=== PATIENT | female | born 1945 | race Hispanic/Latino ===

== ENCOUNTER 2018-07-01 20:25 | Emergency (ER) | payer MEDICARE, OTHER ==
[~2018-07-01] VITALS: Ht 160 cm; Wt 78.0 kg
[~2018-07-01 20:25] MED LIST: CITALOPRAM HBR20 MG PO; GLIMEPIRIDE4 MG PO; GLUMETZA500 MG PO; LEVAQUIN500 MG PO; LISINOPRIL5 MG PO; LOSARTAN POTASS25 MG PO; METOPROLOL SUCC25 MG PO; OMEPRAZOLE40 MG PO; ONGLYZA5 MG PO; SIMVASTATIN80 MG PO; ULTRAM 50MG50 MG PO
--- NOTE | 2018-07-01 22:23 | Diagnostic Imaging Report ---
EXAMINATION: Head CT HISTORY: Weakness, fever and chills for the last 4 days, on treatment for UTI. COMPARISON: None. TECHNIQUE: Multidetector axial images were obtained without contrast from the foramen magnum to the vertex . The images were reconstructed using brain and bone algorithms. Thin section brain images were reformatted into coronal and sagittal planes. Intravenous contrast: None. Image quality: Motion/streaking artifact limits the evaluation of the skull base and posterior cranial fossa. Dose modulation, iterative reconstruction, and/or weight based adjustment of the mA/kV was utilized to reduce the radiation dose to as low as reasonably achievable. FINDINGS: Parenchyma: 1. No abnormal densities. 2. No mass or hemorrhage. No CT evidence of acute territorial vascular insult. Extra-axial spaces:No abnormal density. No extra-axial fluid collections Brain volume: Normal for age. Ventricles: No hydrocephalus or displacement. Arteries: No density suggestive of thrombus. Dural sinuses: No abnormal density. Extra-axial spaces: No abnormal density. Foramen magnum: No mass, Chiari malformation, or basilar invagination. Sella: No obvious mass. Paranasal/mastoid sinuses: Imaged portions unremarkable. Skull/Scalp: No lytic or blastic lesions. No fractures. IMPRESSION: Normal head CT. Signed by: Dr. Porsha Mosley M.D. on 07/01/2018 10:20 PM
== END 2018-07-01 22:35 | disposition home or self-care (01) ==
LOC: FSED 20:25
DX: S01.01XA Laceration without foreign body of scalp, initial encounter (principal); S00.03XA Contusion of scalp, initial encounter; S50.811A Abrasion of right forearm, initial encounter; W01.0XXA Fall on same level from slipping, tripping and stumbling without subsequent striking against object, initial encounter; Y93.01 Activity, walking, marching and hiking; Y92.008 Other place in unspecified non-institutional (private) residence as the place of occurrence of the external cause; I10 Essential (primary) hypertension; E11.9 Type 2 diabetes mellitus without complications; E78.5 Hyperlipidemia, unspecified
CPT/HCPCS: 70450; 99283

== ENCOUNTER 2019-12-03 14:01 | Emergency (ER) | payer MEDICARE, OTHER ==
[~2019-12-03] VITALS: Ht 160 cm; Wt 76.2 kg
[2019-12-03] MEDS ORDERED: HYDROCODONE/APAP 5MG-325MG TAB PO ONE (14:30)
[2019-12-03] MEDS ORDERED: HYDROCODONE/APAP 5MG-325MG TAB ONE (15:00)
--- NOTE | 2019-12-03 15:24 | Diagnostic Imaging Report ---
EXAM: CT Chest WITHOUT intravenous contrast 12/03/2019 12:00 AM INDICATION: Chest wall pain COMPARISON: Chest radiograph 06/21/2018 TECHNIQUE: Chest was scanned utilizing a multidetector helical scanner from the lung apex through the level of the adrenal glands without administration of IV contrast. Coronal and sagittal reformations were obtained. Routine protocol was performed. IV CONTRAST: None RADIATION DOSE: Total DLP: 326.9 mGy*cm. Dose modulation, iterative reconstruction, and/or weight based adjustment of the mA/kV was utilized to reduce the radiation dose to as low as reasonably achievable. COMPLICATIONS: None FINDINGS: LINES/ TUBES: None. LUNGS AND AIRWAYS: The central airways are patent. No focal consolidation or pulmonary edema. 5 mm right lower lobe pulmonary nodule (series 3 image 57). Mild lingular subsegmental atelectasis. PLEURA: The pleural spaces are clear. HEART AND MEDIASTINUM: The thyroid gland is normal. No mediastinal, hilar or axillary lymphadenopathy. The heart is normal in size.. There is no pericardial effusion. Scattered coronary artery atherosclerotic calcifications. UPPER ABDOMEN: No acute findings. BONES: No acute fracture or dislocation. No suspicious lytic or blastic lesions. SOFT TISSUES: Unremarkable. IMPRESSION: No acute traumatic injury to the right thorax. 5 mm right lower lobe pulmonary nodule. If the patient is high risk, follow-up chest CT at 12 months is optional. If the patient is low risk, no further follow-up imaging is warranted. Signed by: Leopoldo Barker MD on 12/03/2019 3:21 PM
[2019-12-03 15:45] VITALS: BP 150/80
== END 2019-12-03 15:51 | disposition home or self-care (01) ==
LOC: FSED 14:01
DX: S20.219A Contusion of unspecified front wall of thorax, initial encounter (principal); W18.30XA Fall on same level, unspecified, initial encounter; Y92.008 Other place in unspecified non-institutional (private) residence as the place of occurrence of the external cause; I10 Essential (primary) hypertension; E11.9 Type 2 diabetes mellitus without complications; I51.9 Heart disease, unspecified
CPT/HCPCS: 71250; 99283

== ENCOUNTER 2020-09-03 05:22 | Observation (INO) | payer MEDICARE ==
[2020-08-31 14:13] LABS: BASOPHILS # (AUTO) 0.1 (0.0-0.1); BASOPHILS % 0.8 % (0.0-1.0); EOSINOPHILS # (AUTO) 0.2 (0.0-0.4); EOSINOPHILS % 2.6 % (0.0-6.0); HEMATOCRIT 33.4 % (34.2-44.1); HEMOGLOBIN 10.6 g/dL (12.0-16.0); LYMPHOCYTES # (AUTO) 1.5 (1.0-3.2); LYMPHOCYTES % 18.8 % (18.0-39.1); MEAN CORPUSCULAR HEMOGLOBIN 29.9 pg (28-32); MEAN CORPUSCULAR HGB CONC 31.7 g/dL (31-35); MEAN CORPUSCULAR VOLUME 94.4 fL (81-99); MONOCYTES # (AUTO) 0.6 (0.2-0.8); MONOCYTES % 8.2 % (4.4-11.3); NEUTROPHILS # (AUTO) 5.4 (2.1-6.9); NEUTROPHILS % 69.2 % (38.7-80.0); PLATELET COUNT 468 x10e3/uL (140-360); RED BLOOD COUNT 3.54 x10e6/uL (3.6-5.1); RED CELL DISTRIBUTION WIDTH 13.6 % (11.7-14.4)
[2020-08-31 14:27] LABS: INR 0.99; PROTHROMBIN TIME 13.6 seconds (11.9-14.5)
[2020-08-31 14:32] LABS: ANION GAP 12.9 mmol/L (8-16); CALCIUM 9.2 mg/dL (8.4-10.2); POTASSIUM 4.9 mmol/L (3.5-5.1)
[~2020-09-03] VITALS: Ht 160 cm; Wt 70.8 kg
[~2020-09-03 05:22] MED LIST changes: +FERROUS SULFAT325 M1 PO; +METFORMIN HCL500 M2 PO; +VITAMIN B12 SL; +VITAMIN C1000 MG PO
[2020-09-03] MEDS ORDERED: TYLENOL # 31 EA PO (06:00)
[2020-09-03] MEDS ORDERED: CEFAZOLIN SOD 1 GM/NS 50ML 100 ML IV ONE (06:01)
[2020-09-03] MEDS ORDERED: THROMBIN FOR SOLN 5,000 UNIT VIAL ONE (07:05)
[2020-09-03] MEDS ORDERED: VANCOMYCIN HCL 1 GM VIAL ONE (07:05)
[2020-09-03] MEDS ORDERED: LIDOCAINE 1% W/EPINEPHRINE 20 ML VIAL ONE (07:05)
[2020-09-03] MEDS ORDERED: ACETAMINOPHEN 1000 MG/100 ML 100 ML IV ONE (07:15)
[2020-09-03] MEDS ORDERED: LIDOCAINE HCL (LTA) 4 ML SOLN ONE (07:15)
[2020-09-03] MEDS ORDERED: IBUPROFEN 800MG/ 200ML 200 ML IV ONE (07:16)
[2020-09-03] MEDS ORDERED: HYDROMORPHONE 2MG/ML 2 MG/ML ML IV PRN (08:45)
[2020-09-03] MEDS ORDERED: CARISOPRODOL 350 MG TAB PO PRN (08:45)
[2020-09-03] MEDS ORDERED: ACETAMINOPHEN 325 MG TAB PO PRN (08:45)
[2020-09-03] MEDS ORDERED: PROMETHAZINE HCL (IM) 25 MG/ML VIAL IM PRN (08:45)
[2020-09-03] MEDS ORDERED: MORPHINE SULFATE 5 MG/ML VIAL IM PRN (08:45)
[2020-09-03] MEDS ORDERED: CEPACOL SORE THROAT LOZENGES PO PRN (08:45)
[2020-09-03] MEDS ORDERED: ONDANSETRON HCL INJ 2MG/ML 2ML 2 MG/ML VIAL IV PRN (08:45)
[2020-09-03] MEDS: VITAMIN B12 SL SCH (09:00)
[2020-09-03] MEDS ORDERED: FENTANYL CITRATE/PF 100MCG/2 ML INJ ONE ×2 (09:00→13:03)
[2020-09-03] MEDS ORDERED: HYDROMORPHONE 1MG/1ML INJ ONE (09:14)
[2020-09-03 10:30] VITALS: BP 134/95
[2020-09-03 11:58] VITALS: BP 128/56
[2020-09-03] MEDS ORDERED: SEVOFLURANE INHAL SOLN 250 ML PEN BTL ONE (12:17)
[2020-09-03] MEDS ORDERED: ROCURONIUM BROMIDE 10 MG/ML 5ML VIAL IV ONE (12:17)
[2020-09-03] MEDS ORDERED: DEXAMETHASONE SOD PHOS INJ 4 MG/ML VIAL ONE (12:17)
[2020-09-03] MEDS ORDERED: LIDOCAINE HCL 2% JELLY 5 ML TUBE ONE (12:17)
[2020-09-03] MEDS ORDERED: LIDOCAINE HCL 2% LOCAL INJ 5 ML SDV VIAL INJ ONE (12:17)
[2020-09-03] MEDS ORDERED: EPHEDRINE SULFATE INJ 50 MG/ML VIAL ONE (12:17)
[2020-09-03] MEDS ORDERED: NEOSTIGMINE 1 MG/ML 10ML VIAL ONE (12:17)
[2020-09-03] MEDS ORDERED: ONDANSETRON HCL INJ 2MG/ML 2ML 2 MG/ML VIAL ONE (12:17)
[2020-09-03] MEDS ORDERED: PROPOFOL IV EMULSION 10 MG/ML 20 ML VIAL ONE (12:17)
[2020-09-03] MEDS ORDERED: GLYCOPYRROLATE INJ 0.2 MG/ML VIAL ONE (12:17)
[2020-09-03] MEDS: PANTOPRAZOLE SOD 40 MG TABEC PO SCH (13:03)
[2020-09-03] MEDS: FERROUS SULFATE 325 MG TAB PO SCH (13:03)
[2020-09-03] MEDS: LACTATED RINGER'S 1,000 ML IV SCH ×2 (13:03→17:05)
[2020-09-03] MEDS ORDERED: MIDAZOLAM HCL 2 MG/2 ML VIAL ONE (13:03)
[2020-09-03] MEDS: METFORMIN HCL 500 MG TAB CR PO SCH ×2 (13:03→17:35)
[2020-09-03] MEDS: CEFAZOLIN SOD 1 GM/NS 50ML 50 ML IV SCH ×2 (13:03→22:04)
[2020-09-03] MEDS: METOPROLOL SUCCINATE 25 MG TAB XL PO SCH (13:03)
[2020-09-03] MEDS: TRAMADOL HCL 50 MG TAB PO PRN (13:17)
[2020-09-03] MEDS: OXYCODONE/ACETAMINOPHEN 5-325 1 EACH TABLET PO PRN ×2 (15:25→20:20)
[2020-09-03 16:23] VITALS: BP 116/58
[2020-09-03] MEDS: GLIMEPIRIDE 2 MG TAB PO SCH (17:35)
[2020-09-03 20:00] VITALS: BP 115/61
[2020-09-03] MEDS ORDERED: ZOLPIDEM TARTRATE 5 MG TAB PO PRN (21:00)
[2020-09-03] MEDS ORDERED: SIMVASTATIN 80 MG TAB PO SCH (21:00)
[2020-09-03 21:20] VITALS: BP 115/61
[2020-09-04] VITALS: BP 121/56
[2020-09-04] MEDS: MAGNESIUM/ALUMINUM/SIMETHICONE 30 ML UDC PO PRN ×2 (01:15→08:38)
[2020-09-04] MEDS: TRAMADOL HCL 50 MG TAB PO PRN (01:15)
[2020-09-04] MEDS: LACTATED RINGER'S 1,000 ML IV SCH (01:25)
[2020-09-04 04:00] VITALS: BP 112/49
[2020-09-04] MEDS: CEFAZOLIN SOD 1 GM/NS 50ML 50 ML IV SCH (05:46)
[2020-09-04 08:00] VITALS: BP 124/50
[2020-09-04] MEDS: METFORMIN HCL 500 MG TAB CR PO SCH (08:00)
[2020-09-04] MEDS: FERROUS SULFATE 325 MG TAB PO SCH (08:29)
[2020-09-04] MEDS: PANTOPRAZOLE SOD 40 MG TABEC PO SCH (08:29)
[2020-09-04] MEDS: GLIMEPIRIDE 2 MG TAB PO SCH (08:29)
[2020-09-04] MEDS: VITAMIN B12 SL SCH (08:29)
[2020-09-04] MEDS: OXYCODONE/ACETAMINOPHEN 5-325 1 EACH TABLET PO PRN (08:38)
[2020-09-04] MEDS: METOPROLOL SUCCINATE 25 MG TAB XL PO SCH (08:46)
[2020-09-04 08:53] VITALS: BP 124/50
[2020-09-04] MEDS ORDERED: ASCORBIC ACID 500 MG TAB PO SCH (09:00)
== END 2020-09-04 09:06 | disposition home or self-care (01) ==
LOC: OR 05:22 → PACU V 08:45 → MED/SURG 10:19
PROVIDERS: ADMIT Neurological Surgery; ATTEND Neurological Surgery
DX: M48.062 Spinal stenosis, lumbar region with neurogenic claudication (principal); M19.90 Unspecified osteoarthritis, unspecified site; E78.5 Hyperlipidemia, unspecified; I10 Essential (primary) hypertension; E11.9 Type 2 diabetes mellitus without complications; Z79.84 Long term (current) use of oral hypoglycemic drugs; Z20.828 Contact with and (suspected) exposure to other viral communicable diseases
CPT/HCPCS: 36415 ×2; 63047; 63048; 71046; 72020; 80048; 82948; 85025; 85610; 85730; 86850; 86900; 88304; 93005; G0378 ×2; J0131; J0690 ×2; J1100; J1170; J2001 ×2; J2270; J2405; J2704; J2710; J3010; J3370; J7121; S0164 ×2; U0002; J2250

== ENCOUNTER 2020-10-08 16:57 | Inpatient (IN) | payer MEDICARE, OTHER ==
[~2020-10-08] VITALS: Ht 160 cm; Wt 78.1 kg
[~2020-10-08 16:57] MED LIST changes: +TYLENOL # 31 EA PO
[2020-10-08] MEDS ORDERED: CITALOPRAM HBR20 MG PO (17:30)
[2020-10-08] MEDS ORDERED: PREDNISONE20 MG PO (17:30)
[2020-10-08] MEDS ORDERED: IBUPROFEN400 MG PO (18:10)
[2020-10-08] MEDS ORDERED: CYCLOBENZAPRINE10 MG PO (18:11)
[2020-10-08] MEDS ORDERED: TYLENOL # 31 EA PO (18:13)
[2020-10-08] MEDS ORDERED: TRAMADOL HCL 50 MG TAB PO ONE ×2 (18:15→20:00)
[2020-10-08] MEDS ORDERED: IOPAMIDOL 370 MG/ML 200 ML INFUS..BTL INJ ONE (18:35)
[2020-10-08] MEDS ORDERED: SODIUM CHLORIDE 0.9% 50ML 50 ML ONE (18:35)
[2020-10-08] MEDS ORDERED: TRAMADOL HCL 50 MG TAB ONE (19:20)
[2020-10-08] MEDS ORDERED: AZITHROMYCIN 500MG/NS 250 ML 250 ML IV ONE (19:30)
[2020-10-08] MEDS ORDERED: CEFTRIAXONE SOD 1 GM/NS 50 ML 50 ML IV ONE ×2 (19:30→20:11)
[2020-10-08] MEDS ORDERED: DEXAMETHASONE SOD PHOS 10 MG/1 ML VIAL IV ONE (19:30)
[2020-10-08] MEDS ORDERED: SODIUM CHLORIDE FLUSH 10 ML SYR INJ PRN (20:00)
[2020-10-08] MEDS ORDERED: ASPIRIN 81 MG CHEW TAB PO ONE (20:00)
[2020-10-08] MEDS ORDERED: ASPIRIN 81 MG CHEW TAB ONE (20:11)
[2020-10-08] MEDS ORDERED: AZITHROMYCIN 500MG/NS 250 ML 250 ML ONE (20:11)
[2020-10-08] MEDS ORDERED: DEXAMETHASONE SOD PHOS INJ 4 MG/ML VIAL ONE (20:12)
[2020-10-08] MEDS: AZITHROMYCIN 500MG/SOD CHL 0.9% 250ML BAG IV SCH (20:25)
[2020-10-08] MEDS: CEFTRIAXONE SOD 1 GRAM/0.9% SOD CHL 50ML BAG IV SCH (20:25)
[2020-10-08] MEDS ORDERED: ACETAMINOPHEN 325 MG TAB ONE (20:26)
[2020-10-08] MEDS ORDERED: ACETAMINOPHEN 325 MG TAB PO ONE (20:30)
[2020-10-08 23:19] VITALS: BP 156/112
[2020-10-08 23:35] VITALS: BP 156/112
[2020-10-09] VITALS (8 sets, daily range): BP systolic 119–150; BP diastolic 48–72
[2020-10-09 05:45] LABS: BASOPHILS % 0.2 % (0.0-1.0); HEMOGLOBIN 11.6 g/dL (12.0-16.0); LYMPHOCYTES # (AUTO) 0.6 (1.0-3.2); LYMPHOCYTES % 10.6 % (18.0-39.1); MEAN CORPUSCULAR HGB CONC 33.1 g/dL (31-35); MEAN CORPUSCULAR VOLUME 90.4 fL (81-99); MONOCYTES # (AUTO) 0.2 (0.2-0.8); MONOCYTES % 4.5 % (4.4-11.3); NEUTROPHILS # (AUTO) 4.5 (2.1-6.9); NEUTROPHILS % 83.8 % (38.7-80.0); PLATELET COUNT 424 x10e3/uL (140-360); RED BLOOD COUNT 3.87 x10e6/uL (3.6-5.1); RED CELL DISTRIBUTION WIDTH 14.3 % (11.7-14.4)
[2020-10-09 06:05] LABS: ALANINE AMINOTRANSFERASE 13 IU/L (0-55); ALBUMIN 2.6 g/dL (3.5-5.0); ALBUMIN/GLOBULIN RATIO 0.6 (0.8-2.0); ALKALINE PHOSPHATASE 67 IU/L (40-150); BLOOD UREA NITROGEN 13 mg/dL (7-26); BUN/CREATININE RATIO 15 (6-25); CALCIUM 8.4 mg/dL (8.4-10.2); CARBON DIOXIDE 21 mmol/L (22-29); CHLORIDE 103 mmol/L (98-107); CREATININE, SERUM 0.85 mg/dL (0.57-1.11); EST GLOMERULAR FILTRATION RATE > 60 ML/MIN (60-); GLUCOSE 356 mg/dL (74-118); MAGNESIUM 1.6 MG/DL (1.3-2.1); SODIUM 135 mmol/L (136-145)
[2020-10-09 06:27] LABS: CREATINE KINASE 29 IU/L (29-168)
[2020-10-09] MEDS ORDERED: ZOLPIDEM TARTRATE 5 MG TAB PO PRN (08:00)
[2020-10-09] MEDS ORDERED: GUAIFENESIN/CODEINE 10 ML CUP PO PRN (08:00)
[2020-10-09] MEDS ORDERED: CALCIUM GLUCONATE 10% INJ 4.65 MEQ in SODIUM CHLORIDE 0.9% 50ML 50 ML IV ONE (08:00)
[2020-10-09] MEDS: CITALOPRAM HYDROBROMIDE 20 MG TAB PO SCH (08:09)
[2020-10-09] MEDS: DEXAMETHASONE SOD PHOS INJ 4 MG/ML VIAL IV SCH (08:09)
[2020-10-09] MEDS: METFORMIN HCL 500 MG TAB CR PO SCH ×3 (08:09→17:40)
[2020-10-09] MEDS: METOPROLOL SUCCINATE 25 MG TAB XL PO SCH (08:09)
[2020-10-09] MEDS ORDERED: SODIUM CHLORIDE 0.9% 1000ML 1,000 ML IV ONE (08:30)
[2020-10-09] MEDS ORDERED: DEXAMETHASONE SOD PHOS 10 MG/1 ML VIAL IV SCH (09:00)
[2020-10-09 10:31] LABS: BAND NEUTROPHILS % (MANUAL) 1 %; LYMPHOCYTES % (MANUAL) 5 % (19-48); MONOCYTES % (MANUAL) 3 % (3.4-9.0); NEUTROPHILS % (MANUAL) 91 % (40-74); PLATELET ESTIMATE SLIGHTLY INCREASED; PLATELET MORPHOLOGY COMMENT NORMAL; RBC MORPHOLOGY COMMENT NORMAL
[2020-10-09 12:55] LABS: CREATINE KINASE 24 IU/L (29-168)
[2020-10-09] MEDS: INSULIN REGULAR, HUMAN 100 UNIT/1 ML 3ML VIAL SQ SCH ×3 (13:52→21:32)
[2020-10-09] MEDS ORDERED: REMDESIVIR 200MG/NS 100ML 200 MG in SODIUM CHLORIDE 0.9% 100 ML 100 ML IV ONE (14:00)
[2020-10-09] MEDS: ENOXAPARIN SOD INJ 40 MG/0.4 ML SYR SC SCH (17:40)
[2020-10-09] MEDS: TRAMADOL HCL 50 MG TAB PO PRN (17:40)
[2020-10-09] MEDS: LOPERAMIDE HCL 2 MG CAP PO PRN (18:48)
[2020-10-09] MEDS: CEFTRIAXONE SOD 1 GRAM/0.9% SOD CHL 50ML BAG IV SCH (21:15)
[2020-10-09] MEDS: AZITHROMYCIN 500MG/SOD CHL 0.9% 250ML BAG IV SCH (21:15)
[2020-10-10] VITALS (8 sets, daily range): BP systolic 127–149; BP diastolic 49–64
[2020-10-10] MEDS: LOPERAMIDE HCL 2 MG CAP PO PRN (00:33)
[2020-10-10] MEDS: LORAZEPAM INJ 2 MG/ML VIAL IV PRN (04:34)
[2020-10-10 06:21] LABS: BASOPHILS % 0.1 % (0.0-1.0); HEMATOCRIT 32.5 % (34.2-44.1); HEMOGLOBIN 10.7 g/dL (12.0-16.0); LYMPHOCYTES # (AUTO) 1.3 (1.0-3.2); LYMPHOCYTES % 12.4 % (18.0-39.1); MEAN CORPUSCULAR HEMOGLOBIN 30.2 pg (28-32); MEAN CORPUSCULAR HGB CONC 32.9 g/dL (31-35); MEAN CORPUSCULAR VOLUME 91.8 fL (81-99); MONOCYTES % 9.6 % (4.4-11.3); NEUTROPHILS # (AUTO) 8.1 (2.1-6.9); PLATELET COUNT 429 x10e3/uL (140-360); RED BLOOD COUNT 3.54 x10e6/uL (3.6-5.1)
[2020-10-10 06:59] LABS: ALANINE AMINOTRANSFERASE 12 IU/L (0-55); ALBUMIN 2.3 g/dL (3.5-5.0); ALBUMIN/GLOBULIN RATIO 0.6 (0.8-2.0); ALKALINE PHOSPHATASE 58 IU/L (40-150); ANION GAP 11.1 mmol/L (8-16); BLOOD UREA NITROGEN 20 mg/dL (7-26); BUN/CREATININE RATIO 29 (6-25); CALCIUM 8.3 mg/dL (8.4-10.2); CARBON DIOXIDE 25 mmol/L (22-29); CHLORIDE 108 mmol/L (98-107); CREATININE, SERUM 0.68 mg/dL (0.57-1.11); EST GLOMERULAR FILTRATION RATE > 60 ML/MIN (60-); GLUCOSE 84 mg/dL (74-118); POTASSIUM 4.1 mmol/L (3.5-5.1); SODIUM 140 mmol/L (136-145)
[2020-10-10] MEDS: INSULIN REGULAR, HUMAN 100 UNIT/1 ML 3ML VIAL SQ SCH ×4 (07:19→21:15)
[2020-10-10] MEDS: METFORMIN HCL 500 MG TAB CR PO SCH ×5 (08:00→17:00)
[2020-10-10] MEDS: CITALOPRAM HYDROBROMIDE 20 MG TAB PO SCH (08:37)
[2020-10-10] MEDS: DEXAMETHASONE SOD PHOS INJ 4 MG/ML VIAL IV SCH (08:37)
[2020-10-10] MEDS: METOPROLOL SUCCINATE 25 MG TAB XL PO SCH (08:39)
[2020-10-10] MEDS: REMDESIVIR 100MG/NS 100ML 100 MG in SODIUM CHLORIDE 0.9% 100 ML 100 ML IV SCH (14:20)
[2020-10-10] MEDS: ENOXAPARIN SOD INJ 40 MG/0.4 ML SYR SC SCH (17:54)
[2020-10-10] MEDS: AZITHROMYCIN 500MG/SOD CHL 0.9% 250ML BAG IV SCH (20:46)
[2020-10-10] MEDS ORDERED: SODIUM CHLORIDE 0.9% 1000ML 1,000 ML ONE (20:53)
[2020-10-10] MEDS: TRAMADOL HCL 50 MG TAB PO PRN (21:08)
[2020-10-10] MEDS: CEFTRIAXONE SOD 1 GRAM/0.9% SOD CHL 50ML BAG IV SCH (21:08)
[2020-10-11] VITALS (16 sets, daily range): BP systolic 112–157; BP diastolic 49–120
[2020-10-11] MEDS: INSULIN REGULAR, HUMAN 100 UNIT/1 ML 3ML VIAL SQ SCH ×4 (07:30→20:52)
[2020-10-11] MEDS: METFORMIN HCL 500 MG TAB CR PO SCH ×3 (08:00→16:06)
[2020-10-11] MEDS: ALPRAZOLAM 0.5 MG TAB PO PRN ×2 (08:01→19:48)
[2020-10-11] MEDS: DEXAMETHASONE SOD PHOS INJ 4 MG/ML VIAL IV SCH (08:07)
[2020-10-11] MEDS: METOPROLOL SUCCINATE 25 MG TAB XL PO SCH (08:09)
[2020-10-11] MEDS: CITALOPRAM HYDROBROMIDE 20 MG TAB PO SCH (08:09)
[2020-10-11] MEDS: TRAMADOL HCL 50 MG TAB PO PRN (08:29)
[2020-10-11 08:32] LABS: BASOPHILS # (AUTO) 0.1 (0.0-0.1); BASOPHILS % 0.3 % (0.0-1.0); HEMOGLOBIN 12.9 g/dL (12.0-16.0); LYMPHOCYTES # (AUTO) 1.9 (1.0-3.2); LYMPHOCYTES % 11.7 % (18.0-39.1); MEAN CORPUSCULAR HEMOGLOBIN 29.7 pg (28-32); MEAN CORPUSCULAR HGB CONC 30.7 g/dL (31-35); MEAN CORPUSCULAR VOLUME 96.6 fL (81-99); MONOCYTES # (AUTO) 1.3 (0.2-0.8); MONOCYTES % 8.1 % (4.4-11.3); NEUTROPHILS # (AUTO) 12.9 (2.1-6.9); NEUTROPHILS % 79.2 % (38.7-80.0); PLATELET COUNT 498 x10e3/uL (140-360); RED BLOOD COUNT 4.35 x10e6/uL (3.6-5.1); RED CELL DISTRIBUTION WIDTH 13.8 % (11.7-14.4)
[2020-10-11 08:58] LABS: ANION GAP 14.2 mmol/L (8-16); BLOOD UREA NITROGEN 24 mg/dL (7-26); BUN/CREATININE RATIO 38 (6-25); CALCIUM 8.6 mg/dL (8.4-10.2); CARBON DIOXIDE 24 mmol/L (22-29); CHLORIDE 104 mmol/L (98-107); CREATININE, SERUM 0.64 mg/dL (0.57-1.11); EST GLOMERULAR FILTRATION RATE > 60 ML/MIN (60-); GLUCOSE 68 mg/dL (74-118); POTASSIUM 4.2 mmol/L (3.5-5.1); SODIUM 138 mmol/L (136-145)
[2020-10-11 12:43] LABS: BAND NEUTROPHILS % (MANUAL) 3 %; LYMPHOCYTES % (MANUAL) 8 % (19-48); MONOCYTES % (MANUAL) 2 % (3.4-9.0); NEUTROPHILS % (MANUAL) 84 % (40-74); PROMYELOCYTES % (MANUAL) 3 % (0-0)
[2020-10-11 12:44] LABS: PLATELET ESTIMATE SLIGHTLY INCREASED; PLATELET MORPHOLOGY COMMENT NORMAL; RBC MORPHOLOGY COMMENT NORMAL
[2020-10-11] MEDS ORDERED: DEXMEDETOMIDINE 200MCG/NS 50ML 50 ML IV PRN (12:45)
[2020-10-11] MEDS ORDERED: DEXMEDETOMIDINE HCL 200 MCG in SODIUM CHLORIDE 0.9% 50ML 48 ML IV PRN (12:45)
[2020-10-11] MEDS: REMDESIVIR 100MG/NS 100ML 100 MG in SODIUM CHLORIDE 0.9% 100 ML 100 ML IV SCH (13:06)
[2020-10-11] MEDS: ENOXAPARIN SOD INJ 40 MG/0.4 ML SYR SC SCH (16:06)
[2020-10-11] MEDS: PIPER-TAZ 3.375 GM 50 ML IV SCH (16:07)
[2020-10-11] MEDS: AZITHROMYCIN 500MG/SOD CHL 0.9% 250ML BAG IV SCH (19:48)
[2020-10-12] VITALS (26 sets, daily range): BP systolic 97–159; BP diastolic 42–67
[2020-10-12] MEDS: PIPER-TAZ 3.375 GM 50 ML IV SCH ×4 (00:25→17:43)
[2020-10-12 04:57] LABS: BASOPHILS % 0.1 % (0.0-1.0); EOSINOPHILS % 0.1 % (0.0-6.0); HEMOGLOBIN 11.4 g/dL (12.0-16.0); LYMPHOCYTES # (AUTO) 1.2 (1.0-3.2); LYMPHOCYTES % 15.8 % (18.0-39.1); MEAN CORPUSCULAR HEMOGLOBIN 30.2 pg (28-32); MEAN CORPUSCULAR HGB CONC 33.5 g/dL (31-35); MONOCYTES # (AUTO) 0.5 (0.2-0.8); MONOCYTES % 6.2 % (4.4-11.3); NEUTROPHILS # (AUTO) 5.9 (2.1-6.9); PLATELET COUNT 427 x10e3/uL (140-360); RED BLOOD COUNT 3.78 x10e6/uL (3.6-5.1); RED CELL DISTRIBUTION WIDTH 13.5 % (11.7-14.4)
[2020-10-12 04:59] LABS: MEAN CORPUSCULAR VOLUME 89.9 fL (81-99)
[2020-10-12 05:28] LABS: ALANINE AMINOTRANSFERASE 20 IU/L (0-55); ALBUMIN 2.3 g/dL (3.5-5.0); ALBUMIN/GLOBULIN RATIO 0.6 (0.8-2.0); ALKALINE PHOSPHATASE 59 IU/L (40-150); ANION GAP 13.8 mmol/L (8-16); BLOOD UREA NITROGEN 25 mg/dL (7-26); BUN/CREATININE RATIO 33 (6-25); CALCIUM 8.1 mg/dL (8.4-10.2); CARBON DIOXIDE 24 mmol/L (22-29); CHLORIDE 104 mmol/L (98-107); CREATININE, SERUM 0.75 mg/dL (0.57-1.11); EST GLOMERULAR FILTRATION RATE > 60 ML/MIN (60-); GLUCOSE 126 mg/dL (74-118); POTASSIUM 3.8 mmol/L (3.5-5.1); SODIUM 138 mmol/L (136-145)
[2020-10-12] MEDS: INSULIN REGULAR, HUMAN 100 UNIT/1 ML 3ML VIAL SQ SCH ×4 (07:30→21:30)
[2020-10-12] MEDS: METFORMIN HCL 500 MG TAB CR PO SCH ×3 (08:00→16:07)
[2020-10-12] MEDS: METOPROLOL SUCCINATE 25 MG TAB XL PO SCH (08:18)
[2020-10-12] MEDS: DEXAMETHASONE SOD PHOS INJ 4 MG/ML VIAL IV SCH (08:18)
[2020-10-12] MEDS: CITALOPRAM HYDROBROMIDE 20 MG TAB PO SCH (08:18)
[2020-10-12] MEDS: TRAMADOL HCL 50 MG TAB PO PRN ×2 (11:45→19:55)
[2020-10-12] MEDS: REMDESIVIR 100MG/NS 100ML 100 MG in SODIUM CHLORIDE 0.9% 100 ML 100 ML IV SCH (13:19)
[2020-10-12] MEDS: ENOXAPARIN SOD INJ 40 MG/0.4 ML SYR SC SCH (16:07)
[2020-10-12] MEDS: AZITHROMYCIN 500MG/SOD CHL 0.9% 250ML BAG IV SCH (19:54)
[2020-10-13] VITALS (26 sets, daily range): BP systolic 99–141; BP diastolic 43–83
[2020-10-13] MEDS: PIPER-TAZ 3.375 GM 50 ML IV SCH ×4 (00:22→17:08)
[2020-10-13] MEDS: LORAZEPAM INJ 2 MG/ML VIAL IV PRN ×3 (02:44→19:05)
[2020-10-13 04:49] LABS: BASOPHILS % 0.2 % (0.0-1.0); EOSINOPHILS % 0.2 % (0.0-6.0); HEMATOCRIT 34.5 % (34.2-44.1); HEMOGLOBIN 11.2 g/dL (12.0-16.0); LYMPHOCYTES # (AUTO) 1.4 (1.0-3.2); LYMPHOCYTES % 11.8 % (18.0-39.1); MEAN CORPUSCULAR HEMOGLOBIN 29.2 pg (28-32); MEAN CORPUSCULAR HGB CONC 32.5 g/dL (31-35); MEAN CORPUSCULAR VOLUME 89.8 fL (81-99); MONOCYTES # (AUTO) 0.8 (0.2-0.8); MONOCYTES % 6.1 % (4.4-11.3); NEUTROPHILS # (AUTO) 9.9 (2.1-6.9); NEUTROPHILS % 80.9 % (38.7-80.0); PLATELET COUNT 417 x10e3/uL (140-360); RED BLOOD COUNT 3.84 x10e6/uL (3.6-5.1); RED CELL DISTRIBUTION WIDTH 13.3 % (11.7-14.4)
[2020-10-13 05:09] LABS: ALANINE AMINOTRANSFERASE 19 IU/L (0-55); ALBUMIN 2.2 g/dL (3.5-5.0); ALBUMIN/GLOBULIN RATIO 0.6 (0.8-2.0); ALKALINE PHOSPHATASE 58 IU/L (40-150); ANION GAP 14.8 mmol/L (8-16); BLOOD UREA NITROGEN 29 mg/dL (7-26); BUN/CREATININE RATIO 38 (6-25); CALCIUM 8.3 mg/dL (8.4-10.2); CARBON DIOXIDE 22 mmol/L (22-29); CHLORIDE 106 mmol/L (98-107); CREATININE, SERUM 0.76 mg/dL (0.57-1.11); EST GLOMERULAR FILTRATION RATE > 60 ML/MIN (60-); POTASSIUM 3.8 mmol/L (3.5-5.1); SODIUM 139 mmol/L (136-145)
[2020-10-13 05:16] LABS: GLUCOSE 58 mg/dL (74-118)
[2020-10-13] MEDS: DEXTROSE 50% SYRINGE 50 ML IV PRN (05:20)
[2020-10-13] MEDS: INSULIN REGULAR, HUMAN 100 UNIT/1 ML 3ML VIAL SQ SCH ×3 (07:30→17:09)
[2020-10-13] MEDS: METFORMIN HCL 500 MG TAB CR PO SCH (08:00)
[2020-10-13] MEDS: TRAMADOL HCL 50 MG TAB PO PRN ×2 (08:13→20:58)
[2020-10-13] MEDS: DEXAMETHASONE SOD PHOS INJ 4 MG/ML VIAL IV SCH (08:13)
[2020-10-13] MEDS: CITALOPRAM HYDROBROMIDE 20 MG TAB PO SCH (08:13)
[2020-10-13] MEDS: METOPROLOL SUCCINATE 25 MG TAB XL PO SCH (08:14)
[2020-10-13] MEDS ORDERED: SODIUM CHLORIDE 0.9% 250ML 250 ML ONE (12:01)
[2020-10-13] MEDS: ACETAMINOPHEN 325 MG TAB PO PRN (12:27)
[2020-10-13] MEDS: REMDESIVIR 100MG/NS 100ML 100 MG in SODIUM CHLORIDE 0.9% 100 ML 100 ML IV SCH (13:28)
[2020-10-13] MEDS: ALPRAZOLAM 0.5 MG TAB PO PRN (15:11)
[2020-10-13] MEDS: ENOXAPARIN SOD INJ 40 MG/0.4 ML SYR SC SCH (17:08)
[2020-10-13] MEDS ORDERED: CENTRAL TPN FORMULA 1 BAG IV SCH (20:00)
[2020-10-14] VITALS (25 sets, daily range): BP systolic 97–163; BP diastolic 39–87
[2020-10-14] MEDS: PIPER-TAZ 3.375 GM 50 ML IV SCH ×5 (00:44→23:37)
[2020-10-14] MEDS: INSULIN REGULAR, HUMAN 100 UNIT/1 ML 3ML VIAL SQ SCH ×5 (00:45→23:32)
[2020-10-14] MEDS: ALPRAZOLAM 0.5 MG TAB PO PRN ×2 (01:58→08:03)
[2020-10-14] MEDS: TRAMADOL HCL 50 MG TAB PO PRN (03:00)
[2020-10-14 04:39] LABS: BASOPHILS % 0.2 % (0.0-1.0); EOSINOPHILS # (AUTO) 0.1 (0.0-0.4); EOSINOPHILS % 0.4 % (0.0-6.0); HEMATOCRIT 31.8 % (34.2-44.1); HEMOGLOBIN 10.5 g/dL (12.0-16.0); LYMPHOCYTES # (AUTO) 1.3 (1.0-3.2); LYMPHOCYTES % 8.8 % (18.0-39.1); MEAN CORPUSCULAR HEMOGLOBIN 29.2 pg (28-32); MEAN CORPUSCULAR VOLUME 88.3 fL (81-99); MONOCYTES # (AUTO) 0.7 (0.2-0.8); MONOCYTES % 4.8 % (4.4-11.3); NEUTROPHILS # (AUTO) 12.5 (2.1-6.9); NEUTROPHILS % 84.9 % (38.7-80.0); PLATELET COUNT 437 x10e3/uL (140-360); RED CELL DISTRIBUTION WIDTH 13.5 % (11.7-14.4)
[2020-10-14 05:00] LABS: ALANINE AMINOTRANSFERASE 13 IU/L (0-55); ALBUMIN/GLOBULIN RATIO 0.5 (0.8-2.0); ALKALINE PHOSPHATASE 57 IU/L (40-150); ANION GAP 15.1 mmol/L (8-16); BLOOD UREA NITROGEN 23 mg/dL (7-26); BUN/CREATININE RATIO 32 (6-25); CARBON DIOXIDE 21 mmol/L (22-29); CHLORIDE 105 mmol/L (98-107); CREATININE, SERUM 0.72 mg/dL (0.57-1.11); EST GLOMERULAR FILTRATION RATE > 60 ML/MIN (60-); GLUCOSE 182 mg/dL (74-118); POTASSIUM 3.1 mmol/L (3.5-5.1); SODIUM 138 mmol/L (136-145)
[2020-10-14] MEDS: CITALOPRAM HYDROBROMIDE 20 MG TAB PO SCH (08:01)
[2020-10-14] MEDS: DEXAMETHASONE SOD PHOS INJ 4 MG/ML VIAL IV SCH (08:01)
[2020-10-14] MEDS ORDERED: POTASSIUM CHLORIDE 20MEQ/100ML 200 ML IV ONE (09:00)
[2020-10-14] MEDS: LORAZEPAM INJ 2 MG/ML VIAL IV PRN (09:46)
[2020-10-14] MEDS: DEXMEDETOMIDINE 200MCG/NS 50ML 50 ML IV PRN ×3 (10:30→17:00)
[2020-10-14] MEDS: ENOXAPARIN SOD INJ 40 MG/0.4 ML SYR SC SCH (17:25)
[2020-10-14] MEDS ORDERED: CENTRAL TPN FORMULA 1 BAG IV SCH (20:00)
[2020-10-15] VITALS (25 sets, daily range): BP systolic 94–168; BP diastolic 46–76
[2020-10-15] MEDS: ALPRAZOLAM 0.5 MG TAB PO PRN ×2 (03:29→15:08)
[2020-10-15] MEDS ORDERED: SODIUM CHLORIDE 0.9% 250ML 250 ML ONE ×2 (05:47→22:07)
[2020-10-15] MEDS: INSULIN REGULAR, HUMAN 100 UNIT/1 ML 3ML VIAL SQ SCH ×3 (05:51→17:20)
[2020-10-15] MEDS: PIPER-TAZ 3.375 GM 50 ML IV SCH ×3 (05:51→17:19)
[2020-10-15 05:54] LABS: BASOPHILS % 0.1 % (0.0-1.0); EOSINOPHILS # (AUTO) 0.2 (0.0-0.4); EOSINOPHILS % 1.2 % (0.0-6.0); HEMATOCRIT 33.2 % (34.2-44.1); LYMPHOCYTES # (AUTO) 0.9 (1.0-3.2); LYMPHOCYTES % 5.6 % (18.0-39.1); MEAN CORPUSCULAR HEMOGLOBIN 29.6 pg (28-32); MEAN CORPUSCULAR HGB CONC 33.1 g/dL (31-35); MEAN CORPUSCULAR VOLUME 89.2 fL (81-99); MONOCYTES # (AUTO) 0.6 (0.2-0.8); MONOCYTES % 3.9 % (4.4-11.3); NEUTROPHILS # (AUTO) 14.3 (2.1-6.9); NEUTROPHILS % 88.4 % (38.7-80.0); PLATELET COUNT 409 x10e3/uL (140-360); RED BLOOD COUNT 3.72 x10e6/uL (3.6-5.1); RED CELL DISTRIBUTION WIDTH 13.3 % (11.7-14.4)
[2020-10-15 06:27] LABS: ALANINE AMINOTRANSFERASE 13 IU/L (0-55); ALBUMIN 1.9 g/dL (3.5-5.0); ALBUMIN/GLOBULIN RATIO 0.5 (0.8-2.0); ALKALINE PHOSPHATASE 71 IU/L (40-150); ANION GAP 12.8 mmol/L (8-16); BLOOD UREA NITROGEN 23 mg/dL (7-26); BUN/CREATININE RATIO 32 (6-25); CARBON DIOXIDE 21 mmol/L (22-29); CHLORIDE 104 mmol/L (98-107); CREATININE, SERUM 0.71 mg/dL (0.57-1.11); EST GLOMERULAR FILTRATION RATE > 60 ML/MIN (60-); GLUCOSE 268 mg/dL (74-118); POTASSIUM 3.8 mmol/L (3.5-5.1); SODIUM 134 mmol/L (136-145)
[2020-10-15 06:37] LABS: CALCIUM 8.5 mg/dL (8.4-10.2)
[2020-10-15] MEDS: DEXAMETHASONE SOD PHOS INJ 4 MG/ML VIAL IV SCH (08:28)
[2020-10-15] MEDS: CITALOPRAM HYDROBROMIDE 20 MG TAB PO SCH (08:28)
[2020-10-15] MEDS: DEXMEDETOMIDINE 200MCG/NS 50ML 50 ML IV PRN ×3 (08:32→14:02)
[2020-10-15] MEDS: TRAMADOL HCL 50 MG TAB PO PRN ×2 (09:00→15:08)
[2020-10-15] MEDS ORDERED: ALBUMIN 25% 25GM 100ML 0.25 GM/ML BTL IV SCH (10:30)
[2020-10-15] MEDS ORDERED: FUROSEMIDE INJ 10 MG/ML 4 ML VIAL IV ONE (10:30)
[2020-10-15] MEDS: ALBUMIN 25% 25GM 100ML 100 ML IV SCH ×2 (12:28→17:19)
[2020-10-15] MEDS: ENOXAPARIN SOD INJ 40 MG/0.4 ML SYR SC SCH (16:46)
[2020-10-15] MEDS ORDERED: CENTRAL TPN FORMULA 1 BAG IV SCH (20:00)
[2020-10-15] MEDS: INSULIN GLARGINE 100 UNITS/ML VIAL SQ SCH (20:39)
[2020-10-16] VITALS (14 sets, daily range): BP systolic 89–158; BP diastolic 44–73
[2020-10-16] MEDS: PIPER-TAZ 3.375 GM 50 ML IV SCH ×4 (00:01→17:21)
[2020-10-16] MEDS: ALBUMIN 25% 25GM 100ML 100 ML IV SCH (01:22)
[2020-10-16] MEDS ORDERED: ASPIRIN 81 MG CHEW TAB PO ONE (02:00)
[2020-10-16 02:12] LABS: BASOPHILS % 0.2 % (0.0-1.0); EOSINOPHILS # (AUTO) 0.1 (0.0-0.4); HEMATOCRIT 29.8 % (34.2-44.1); HEMOGLOBIN 10.1 g/dL (12.0-16.0); LYMPHOCYTES # (AUTO) 0.9 (1.0-3.2); LYMPHOCYTES % 7.5 % (18.0-39.1); MEAN CORPUSCULAR HEMOGLOBIN 29.5 pg (28-32); MEAN CORPUSCULAR HGB CONC 33.9 g/dL (31-35); MEAN CORPUSCULAR VOLUME 87.1 fL (81-99); MONOCYTES # (AUTO) 0.5 (0.2-0.8); MONOCYTES % 4.5 % (4.4-11.3); NEUTROPHILS % 86.2 % (38.7-80.0); PLATELET COUNT 375 x10e3/uL (140-360); RED BLOOD COUNT 3.42 x10e6/uL (3.6-5.1); RED CELL DISTRIBUTION WIDTH 13.3 % (11.7-14.4)
[2020-10-16 02:30] LABS: ALANINE AMINOTRANSFERASE 12 IU/L (0-55); ALBUMIN 3.6 g/dL (3.5-5.0); ALKALINE PHOSPHATASE 49 IU/L (40-150); ANION GAP 16.4 mmol/L (8-16); BLOOD UREA NITROGEN 26 mg/dL (7-26); BUN/CREATININE RATIO 31 (6-25); CALCIUM 9.3 mg/dL (8.4-10.2); CARBON DIOXIDE 22 mmol/L (22-29); CHLORIDE 99 mmol/L (98-107); CREATININE, SERUM 0.84 mg/dL (0.57-1.11); EST GLOMERULAR FILTRATION RATE > 60 ML/MIN (60-); GLUCOSE 241 mg/dL (74-118); POTASSIUM 3.4 mmol/L (3.5-5.1); SODIUM 134 mmol/L (136-145)
[2020-10-16 02:36] LABS: CREATINE KINASE MB 0.8 ng/mL (0-5.0)
[2020-10-16] MEDS: ALPRAZOLAM 0.5 MG TAB PO PRN ×2 (03:19→11:15)
[2020-10-16] MEDS ORDERED: POTASSIUM CHLORIDE 20 MEQ TAB CR PO STA (04:48)
[2020-10-16] MEDS: LOPERAMIDE HCL 2 MG CAP PO PRN (05:52)
[2020-10-16] MEDS: INSULIN REGULAR, HUMAN 100 UNIT/1 ML 3ML VIAL SQ SCH ×4 (05:52→17:30)
[2020-10-16] MEDS: ACETAMINOPHEN 325 MG TAB PO PRN (05:53)
[2020-10-16] MEDS: TRAMADOL HCL 50 MG TAB PO PRN ×2 (05:53→13:56)
[2020-10-16] MEDS: ASPIRIN 81 MG CHEW TAB PO SCH (08:27)
[2020-10-16] MEDS: CITALOPRAM HYDROBROMIDE 20 MG TAB PO SCH (08:27)
[2020-10-16] MEDS ORDERED: ALBUMIN 25% 25GM 100ML 0.25 GM/ML BTL IV SCH (09:00)
[2020-10-16] MEDS ORDERED: POTASSIUM CHLORIDE 10MEQ EA PO ONE (09:30)
[2020-10-16 10:16] LABS: CREATINE KINASE MB 1.1 ng/mL (0-5.0)
[2020-10-16] MEDS ORDERED: AMIODARONE HCL 900 MG in DEXTROSE 5% 500ML 500 ML IV SCH (13:15)
[2020-10-16] MEDS ORDERED: AMIODARONE HCL 900 MG in DEXTROSE 5% 500ML 500 ML IV ONE (13:15)
[2020-10-16] MEDS ORDERED: AMIODARONE HCL 150 MG/100 ML BAG IV ONE (13:15)
[2020-10-16] MEDS ORDERED: FUROSEMIDE INJ 10 MG/ML 4 ML VIAL IV ONE (13:45)
[2020-10-16] MEDS: METOPROLOL TARTRATE 25 MG TAB PO SCH (16:12)
[2020-10-16] MEDS: ENOXAPARIN SOD INJ 40 MG/0.4 ML SYR SC SCH (17:21)
[2020-10-16] MEDS ORDERED: DEXMEDETOMIDINE 200MCG/NS 50ML 50 ML IV PRN (17:45)
[2020-10-16 18:15] LABS: CREATINE KINASE MB 0.9 ng/mL (0-5.0)
[2020-10-16] MEDS ORDERED: CENTRAL TPN FORMULA 1 BAG IV SCH (20:00)
[2020-10-16] MEDS: INSULIN GLARGINE 100 UNITS/ML VIAL SQ SCH (22:10)
[2020-10-17] VITALS (16 sets, daily range): BP systolic 99–137; BP diastolic 49–100
[2020-10-17] MEDS: PIPER-TAZ 3.375 GM 50 ML IV SCH ×4 (00:30→17:51)
[2020-10-17] MEDS: INSULIN REGULAR, HUMAN 100 UNIT/1 ML 3ML VIAL SQ SCH ×4 (01:00→17:51)
[2020-10-17 05:43] LABS: BASOPHILS % 0.2 % (0.0-1.0); EOSINOPHILS # (AUTO) 0.4 (0.0-0.4); EOSINOPHILS % 3.2 % (0.0-6.0); HEMATOCRIT 29.4 % (34.2-44.1); HEMOGLOBIN 9.9 g/dL (12.0-16.0); LYMPHOCYTES % 7.3 % (18.0-39.1); MEAN CORPUSCULAR HEMOGLOBIN 30.2 pg (28-32); MEAN CORPUSCULAR HGB CONC 33.7 g/dL (31-35); MEAN CORPUSCULAR VOLUME 89.6 fL (81-99); MONOCYTES # (AUTO) 0.8 (0.2-0.8); MONOCYTES % 5.8 % (4.4-11.3); NEUTROPHILS # (AUTO) 11.5 (2.1-6.9); NEUTROPHILS % 82.7 % (38.7-80.0); PLATELET COUNT 394 x10e3/uL (140-360); RED BLOOD COUNT 3.28 x10e6/uL (3.6-5.1); RED CELL DISTRIBUTION WIDTH 13.4 % (11.7-14.4)
[2020-10-17 06:11] LABS: ALBUMIN 2.7 g/dL (3.5-5.0); ALBUMIN/GLOBULIN RATIO 0.8 (0.8-2.0); CALCIUM 8.7 mg/dL (8.4-10.2); CREATININE, SERUM 0.98 mg/dL (0.57-1.11)
[2020-10-17 06:36] LABS: ANION GAP 16.2 mmol/L (8-16)
[2020-10-17 06:37] LABS: POTASSIUM 4.2 mmol/L (3.5-5.1)
[2020-10-17] MEDS: CITALOPRAM HYDROBROMIDE 20 MG TAB PO SCH (07:21)
[2020-10-17] MEDS: ASPIRIN 81 MG CHEW TAB PO SCH (07:21)
[2020-10-17] MEDS: METOPROLOL TARTRATE 25 MG TAB PO SCH ×2 (09:00→17:00)
[2020-10-17] MEDS: ALPRAZOLAM 0.5 MG TAB PO PRN ×2 (11:59→22:03)
[2020-10-17] MEDS: ENOXAPARIN SOD INJ 40 MG/0.4 ML SYR SC SCH (17:51)
[2020-10-17] MEDS ORDERED: ALBUMIN 25% 25GM 100ML 0.25 GM/ML BTL IV ONE (18:00)
[2020-10-17] MEDS ORDERED: FUROSEMIDE INJ 10 MG/ML 4 ML VIAL IV ONE (18:00)
[2020-10-17] MEDS ORDERED: ALBUMIN 25% 12.5GM 0.25 GM/ML BTL IV ONE ×2 (18:15→18:30)
[2020-10-17] MEDS ORDERED: CENTRAL TPN FORMULA 1 BAG IV SCH (20:00)
[2020-10-17] MEDS: INSULIN GLARGINE 100 UNITS/ML VIAL SQ SCH (21:15)
[2020-10-17] MEDS: TRAMADOL HCL 50 MG TAB PO PRN (22:03)
[2020-10-18] VITALS (16 sets, daily range): BP systolic 99–124; BP diastolic 42–78
[2020-10-18] MEDS: PIPER-TAZ 3.375 GM 50 ML IV SCH ×4 (00:30→17:15)
[2020-10-18] MEDS: INSULIN REGULAR, HUMAN 100 UNIT/1 ML 3ML VIAL SQ SCH ×4 (00:30→17:43)
[2020-10-18] MEDS: TRAMADOL HCL 50 MG TAB PO PRN ×2 (05:05→16:00)
[2020-10-18 05:28] LABS: BASOPHILS % 0.2 % (0.0-1.0); EOSINOPHILS # (AUTO) 0.3 (0.0-0.4); EOSINOPHILS % 2.1 % (0.0-6.0); HEMATOCRIT 29.8 % (34.2-44.1); HEMOGLOBIN 9.8 g/dL (12.0-16.0); LYMPHOCYTES # (AUTO) 0.7 (1.0-3.2); MEAN CORPUSCULAR HEMOGLOBIN 29.6 pg (28-32); MEAN CORPUSCULAR HGB CONC 32.9 g/dL (31-35); MONOCYTES # (AUTO) 1.2 (0.2-0.8); MONOCYTES % 7.4 % (4.4-11.3); NEUTROPHILS # (AUTO) 13.8 (2.1-6.9); NEUTROPHILS % 85.6 % (38.7-80.0); PLATELET COUNT 409 x10e3/uL (140-360); RED BLOOD COUNT 3.31 x10e6/uL (3.6-5.1); RED CELL DISTRIBUTION WIDTH 13.5 % (11.7-14.4)
[2020-10-18 05:57] LABS: ALBUMIN 2.9 g/dL (3.5-5.0); ALBUMIN/GLOBULIN RATIO 0.7 (0.8-2.0); CALCIUM 9.3 mg/dL (8.4-10.2); CREATININE, SERUM 1.11 mg/dL (0.57-1.11)
[2020-10-18] MEDS: AMIODARONE HCL 200 MG TAB PO SCH (08:57)
[2020-10-18] MEDS: ASPIRIN 81 MG CHEW TAB PO SCH (08:57)
[2020-10-18] MEDS: CITALOPRAM HYDROBROMIDE 20 MG TAB PO SCH (08:57)
[2020-10-18] MEDS: METOPROLOL TARTRATE 25 MG TAB PO SCH ×2 (08:59→17:14)
[2020-10-18] MEDS: ENOXAPARIN SOD INJ 40 MG/0.4 ML SYR SC SCH (17:15)
[2020-10-18] MEDS: CENTRAL TPN FORMULA 1 BAG IV SCH (19:41)
[2020-10-18] MEDS: INSULIN GLARGINE 100 UNITS/ML VIAL SQ SCH (21:20)
[2020-10-19] VITALS (40 sets, daily range): BP systolic 74–171; BP diastolic 44–80
[2020-10-19] MEDS: PIPER-TAZ 3.375 GM 50 ML IV SCH ×2 (00:26→06:24)
[2020-10-19] MEDS: INSULIN REGULAR, HUMAN 100 UNIT/1 ML 3ML VIAL SQ SCH ×5 (00:26→23:10)
[2020-10-19] MEDS: TRAMADOL HCL 50 MG TAB PO PRN ×2 (02:40→09:30)
[2020-10-19 05:11] LABS: BASOPHILS # (AUTO) 0.1 (0.0-0.1); BASOPHILS % 0.2 % (0.0-1.0); EOSINOPHILS # (AUTO) 0.2 (0.0-0.4); EOSINOPHILS % 0.8 % (0.0-6.0); HEMATOCRIT 29.5 % (34.2-44.1); HEMOGLOBIN 9.5 g/dL (12.0-16.0); LYMPHOCYTES # (AUTO) 0.8 (1.0-3.2); LYMPHOCYTES % 3.5 % (18.0-39.1); MEAN CORPUSCULAR HEMOGLOBIN 29.7 pg (28-32); MEAN CORPUSCULAR HGB CONC 32.2 g/dL (31-35); MEAN CORPUSCULAR VOLUME 92.2 fL (81-99); MONOCYTES # (AUTO) 1.6 (0.2-0.8); MONOCYTES % 7.2 % (4.4-11.3); NEUTROPHILS % 87.6 % (38.7-80.0); PLATELET COUNT 416 x10e3/uL (140-360); RED CELL DISTRIBUTION WIDTH 13.6 % (11.7-14.4)
[2020-10-19 05:43] LABS: ALBUMIN 2.2 g/dL (3.5-5.0); ALBUMIN/GLOBULIN RATIO 0.5 (0.8-2.0); ANION GAP 14.8 mmol/L (8-16); CREATININE, SERUM 1.18 mg/dL (0.57-1.11); POTASSIUM 3.8 mmol/L (3.5-5.1)
[2020-10-19] MEDS ORDERED: VANCOMYCIN 1GM/NS 250 ML 250 ML IV ONE (07:30)
[2020-10-19] MEDS ORDERED: HALOPERIDOL LACTATE 5 MG/ML VIAL IV ONE (08:10)
[2020-10-19 08:22] LABS: INR 1.33; PROTHROMBIN TIME 17.1 seconds (11.9-14.5)
[2020-10-19] MEDS: AMIODARONE HCL 200 MG TAB PO SCH (08:43)
[2020-10-19] MEDS: ASPIRIN 81 MG CHEW TAB PO SCH (08:43)
[2020-10-19] MEDS: CITALOPRAM HYDROBROMIDE 20 MG TAB PO SCH (08:43)
[2020-10-19] MEDS: METOPROLOL TARTRATE 25 MG TAB PO SCH ×2 (08:43→17:20)
[2020-10-19] MEDS: MEROPENEM 1GM 100 ML IV SCH ×2 (08:43→16:58)
[2020-10-19] MEDS: ACETAMINOPHEN 325 MG TAB PO PRN (09:30)
[2020-10-19] MEDS ORDERED: LORAZEPAM INJ 2 MG/ML VIAL IV ONE (11:05)
[2020-10-19] MEDS ORDERED: NOREPINEPHRINE 8 MG/D5W 250 ML 250 ML ONE (11:15)
[2020-10-19] MEDS: ENOXAPARIN SOD INJ 40 MG/0.4 ML SYR SC SCH (17:19)
[2020-10-19] MEDS ORDERED: LORAZEPAM INJ 2 MG/ML VIAL IV PRN (19:00)
[2020-10-19] MEDS: MIDAZOLAM HCL 50 MG in SODIUM CHLORIDE 0.9% 100 ML 90 ML IV PRN (19:28)
[2020-10-19] MEDS: FENTANYL CITRATE INJ 2,000 MCG in SODIUM CHLORIDE 0.9% 250ML 210 ML IV PRN (20:00)
[2020-10-19] MEDS ORDERED: SODIUM CHLORIDE 0.45% 1,000 ML ONE (20:00)
[2020-10-19] MEDS ORDERED: SODIUM CHLORIDE 0.9% 1000ML 250 ML IV ONE (20:00)
[2020-10-19] MEDS: NOREPINEPHRINE 8 MG/D5W 250 ML 250 ML IV PRN (20:20)
[2020-10-19] MEDS: ROCURONIUM BROMIDE 1,250 MG in SODIUM CHLORIDE 0.9% 250ML 125 ML IV SCH (21:24)
[2020-10-19] MEDS: INSULIN GLARGINE 100 UNITS/ML VIAL SQ SCH (22:53)
[2020-10-19] MEDS: CENTRAL TPN FORMULA 1 BAG IV SCH (22:53)
[2020-10-19 22:59] LABS: ABG PCO2 31 mmHg (35-45); ABG PH 7.38 (7.35-7.45)
[2020-10-19 23:00] LABS: ABG HCO3 19 mmol/L (22-26); ABG PO2 57 mmHg (80-105); ABG TCO2 19
[2020-10-20] VITALS (42 sets, daily range): BP systolic 84–116; BP diastolic 37–69
[2020-10-20] MEDS: MIDAZOLAM HCL 50 MG in SODIUM CHLORIDE 0.9% 100 ML 90 ML IV PRN ×3 (00:42→14:23)
[2020-10-20] MEDS ORDERED: MIDAZOLAM HCL 5MG/ML 10ML VIAL 100 ML IV ONE ×3 (00:42→23:14)
[2020-10-20] MEDS: MEROPENEM 1GM 100 ML IV SCH ×3 (01:13→17:03)
[2020-10-20 04:57] LABS: BASOPHILS # (AUTO) 0.1 (0.0-0.1); BASOPHILS % 0.3 % (0.0-1.0); HEMOGLOBIN 8.3 g/dL (12.0-16.0); LYMPHOCYTES # (AUTO) 0.8 (1.0-3.2); LYMPHOCYTES % 2.8 % (18.0-39.1); MEAN CORPUSCULAR HEMOGLOBIN 30.1 pg (28-32); MEAN CORPUSCULAR HGB CONC 31.9 g/dL (31-35); MEAN CORPUSCULAR VOLUME 94.2 fL (81-99); MONOCYTES # (AUTO) 1.8 (0.2-0.8); MONOCYTES % 6.2 % (4.4-11.3); PLATELET COUNT 409 x10e3/uL (140-360); RED BLOOD COUNT 2.76 x10e6/uL (3.6-5.1); RED CELL DISTRIBUTION WIDTH 13.7 % (11.7-14.4)
[2020-10-20] MEDS ORDERED: SODIUM CHLORIDE 0.9% 1000ML 250 ML IV ONE (05:00)
[2020-10-20 05:30] LABS: ALBUMIN 1.6 g/dL (3.5-5.0); ALBUMIN/GLOBULIN RATIO 0.4 (0.8-2.0); ANION GAP 12.9 mmol/L (8-16); CALCIUM 8.1 mg/dL (8.4-10.2); CREATININE, SERUM 1.63 mg/dL (0.57-1.11); POTASSIUM 3.9 mmol/L (3.5-5.1)
[2020-10-20] MEDS: FENTANYL CITRATE INJ 2,000 MCG in SODIUM CHLORIDE 0.9% 250ML 210 ML IV PRN ×2 (06:00→14:24)
[2020-10-20] MEDS ORDERED: FENTANYL 2000MCG/NS 250 250 ML ONE ×2 (06:39→14:30)
[2020-10-20] MEDS: INSULIN REGULAR, HUMAN 100 UNIT/1 ML 3ML VIAL SQ SCH ×3 (06:45→17:39)
[2020-10-20] MEDS: ACETAMINOPHEN 325 MG TAB PO PRN (08:12)
[2020-10-20] MEDS: CITALOPRAM HYDROBROMIDE 20 MG TAB PO SCH (09:02)
[2020-10-20] MEDS: AMIODARONE HCL 200 MG TAB PO SCH (09:02)
[2020-10-20] MEDS: ASPIRIN 81 MG CHEW TAB PO SCH (09:02)
[2020-10-20] MEDS: METOPROLOL TARTRATE 25 MG TAB PO SCH ×2 (09:02→17:30)
[2020-10-20 09:05] LABS: LYMPHOCYTES % (MANUAL) 3 % (19-48); MONOCYTES % (MANUAL) 5 % (3.4-9.0); NEUTROPHILS % (MANUAL) 92 % (40-74)
[2020-10-20 09:06] LABS: ANISOCYTOSIS SLIGHT; PLATELET ESTIMATE SLIGHTLY INCREASED; PLATELET MORPHOLOGY COMMENT NORMAL; RBC MORPHOLOGY COMMENT NORMAL
[2020-10-20] MEDS ORDERED: SODIUM CHLORIDE 0.9% 1000ML 1,000 ML ONE (09:27)
[2020-10-20 10:02] LABS: ABG HCO3 21 mmol/L (22-26); ABG PCO2 51 mmHg (35-45); ABG PH 7.24 (7.35-7.45); ABG PO2 126 mmHg (80-105); ABG TCO2 23
[2020-10-20] MEDS ORDERED: SODIUM CHLORIDE 0.9% 1000ML 1,000 ML IV ONE (10:30)
[2020-10-20] MEDS ORDERED: DIGOXIN INJ 0.25 MG/ML 2 ML AMP IV ONE (12:45)
[2020-10-20] MEDS: NOREPINEPHRINE 8 MG/D5W 250 ML 250 ML IV PRN (15:04)
[2020-10-20 15:10] LABS: ABG HCO3 19 mmol/L (22-26); ABG PCO2 43 mmHg (35-45); ABG PH 7.24 (7.35-7.45); ABG PO2 111 mmHg (80-105); ABG TCO2 20
[2020-10-20] MEDS ORDERED: LIDOCAINE HCL 2% LOCAL 20 ML VIAL ONE (16:50)
[2020-10-20] MEDS: ENOXAPARIN SOD INJ 40 MG/0.4 ML SYR SC SCH (17:30)
[2020-10-20] MEDS: CENTRAL TPN FORMULA 1 BAG IV SCH (20:27)
[2020-10-20] MEDS: INSULIN GLARGINE 100 UNITS/ML VIAL SQ SCH (20:28)
[2020-10-20] MEDS: ROCURONIUM BROMIDE 1,250 MG in SODIUM CHLORIDE 0.9% 250ML 125 ML IV SCH (20:36)
[2020-10-21] VITALS (16 sets, daily range): BP systolic 68–135; BP diastolic 41–68
[2020-10-21] MEDS: INSULIN REGULAR, HUMAN 100 UNIT/1 ML 3ML VIAL SQ SCH ×5 (00:07→23:34)
[2020-10-21 04:43] LABS: BASOPHILS # (AUTO) 0.1 (0.0-0.1); BASOPHILS % 0.3 % (0.0-1.0); EOSINOPHILS # (AUTO) 0.4 (0.0-0.4); HEMATOCRIT 27.7 % (34.2-44.1); HEMOGLOBIN 8.8 g/dL (12.0-16.0); LYMPHOCYTES % 5.4 % (18.0-39.1); MEAN CORPUSCULAR HEMOGLOBIN 29.7 pg (28-32); MEAN CORPUSCULAR HGB CONC 31.8 g/dL (31-35); MEAN CORPUSCULAR VOLUME 93.6 fL (81-99); MONOCYTES # (AUTO) 1.5 (0.2-0.8); MONOCYTES % 8.3 % (4.4-11.3); NEUTROPHILS # (AUTO) 15.3 (2.1-6.9); NEUTROPHILS % 82.8 % (38.7-80.0); PLATELET COUNT 446 x10e3/uL (140-360); RED BLOOD COUNT 2.96 x10e6/uL (3.6-5.1); RED CELL DISTRIBUTION WIDTH 14.3 % (11.7-14.4)
[2020-10-21] MEDS: ACETAMINOPHEN 325 MG TAB PO PRN (04:54)
[2020-10-21 05:11] LABS: ALBUMIN 1.3 g/dL (3.5-5.0); ALBUMIN/GLOBULIN RATIO 0.3 (0.8-2.0); ANION GAP 18.9 mmol/L (8-16); CALCIUM 8.3 mg/dL (8.4-10.2); CREATININE, SERUM 2.64 mg/dL (0.57-1.11); POTASSIUM 4.9 mmol/L (3.5-5.1)
[2020-10-21] MEDS ORDERED: SODIUM CHLORIDE 0.9% 250ML 250 ML IV ONE ×2 (05:30)
[2020-10-21] MEDS ORDERED: SODIUM CHLORIDE 0.9% 250ML 250 ML ONE (05:35)
[2020-10-21] MEDS ORDERED: ACETAMINOPHEN 1000 MG/100 ML IV STA (06:00)
[2020-10-21] MEDS ORDERED: SODIUM CHLORIDE 0.9% 1000ML 2,000 ML IV ONE (06:00)
[2020-10-21] MEDS ORDERED: SODIUM CHLORIDE 0.9% 1000ML 2,000 ML ONE ×2 (06:04→14:28)
[2020-10-21] MEDS ORDERED: ACETAMINOPHEN 1000 MG/100 ML 100 ML IV ONE (06:05)
[2020-10-21] MEDS ORDERED: AMIODARONE 900MG 500 ML IV ONE (06:12)
[2020-10-21] MEDS ORDERED: AMIODARONE HCL 100 ML IV ONE (06:12)
[2020-10-21] MEDS: VASOPRESSIN 60 UNIT in DEXTROSE 5% 50ML 57 ML IV PRN ×2 (06:15→16:49)
[2020-10-21] MEDS ORDERED: AMIODARONE HCL 150 MG/100 ML BAG IV ONE (06:15)
[2020-10-21 06:17] LABS: BASOPHILS # (AUTO) 0.1 (0.0-0.1); BASOPHILS % 0.4 % (0.0-1.0); EOSINOPHILS # (AUTO) 0.3 (0.0-0.4); HEMATOCRIT 23.2 % (34.2-44.1); HEMOGLOBIN 7.1 g/dL (12.0-16.0); LYMPHOCYTES # (AUTO) 1.2 (1.0-3.2); LYMPHOCYTES % 7.1 % (18.0-39.1); MEAN CORPUSCULAR HEMOGLOBIN 29.6 pg (28-32); MEAN CORPUSCULAR HGB CONC 30.6 g/dL (31-35); MEAN CORPUSCULAR VOLUME 96.7 fL (81-99); MONOCYTES # (AUTO) 1.3 (0.2-0.8); MONOCYTES % 7.7 % (4.4-11.3); NEUTROPHILS # (AUTO) 13.3 (2.1-6.9); NEUTROPHILS % 81.7 % (38.7-80.0); PLATELET COUNT 407 x10e3/uL (140-360); RED CELL DISTRIBUTION WIDTH 14.5 % (11.7-14.4)
[2020-10-21 06:26] LABS: INR 1.66; PROTHROMBIN TIME 20.4 seconds (11.9-14.5)
[2020-10-21 06:27] LABS: PARTIAL THROMBOPLASTIN TIME 46.6 seconds (23.8-35.5)
[2020-10-21] MEDS ORDERED: ALTEPLASE 50 MG/VIAL (29 MILLION IU) IV ONE ×2 (06:30)
[2020-10-21] MEDS ORDERED: AMIODARONE 900MG 500 ML IV PRN (06:30)
[2020-10-21 06:37] LABS: ALBUMIN/GLOBULIN RATIO 0.3 (0.8-2.0); ANION GAP 17.2 mmol/L (8-16); CREATININE, SERUM 2.29 mg/dL (0.57-1.11); POTASSIUM 4.2 mmol/L (3.5-5.1)
[2020-10-21 06:39] LABS: CALCIUM 6.7 mg/dL (8.4-10.2)
[2020-10-21] MEDS ORDERED: SODIUM BICARBONATE 8.4% INJ 50 ML SYR IV STA ×2 (07:06→07:54)
[2020-10-21] MEDS ORDERED: SODIUM BICARBONATE 8.4% SYRING 100 ML ONE (07:15)
[2020-10-21] MEDS ORDERED: SODIUM BICARBONATE 8.4% SYRING 50 ML ONE (08:00)
[2020-10-21] MEDS: SODIUM BICARBONATE 8.4% 150 ML in DEXTROSE 5% 1,000 ML IV SCH ×2 (08:01→20:28)
[2020-10-21] MEDS: MEROPENEM 500MG/ NS 50ML 50 ML IV SCH ×2 (08:07→20:27)
[2020-10-21] MEDS: AMIODARONE HCL 200 MG TAB PO SCH (08:07)
[2020-10-21] MEDS: ASPIRIN 81 MG CHEW TAB PO SCH (08:07)
[2020-10-21] MEDS: METOPROLOL TARTRATE 25 MG TAB PO SCH ×2 (09:00→15:06)
[2020-10-21 09:15] LABS: ABG HCO3 13 mmol/L (22-26); ABG PCO2 44 mmHg (35-45); ABG PH 7.08 (7.35-7.45); ABG PO2 60 mmHg (80-105); ABG TCO2 14
[2020-10-21 10:38] LABS: ABG HCO3 17 mmol/L (22-26); ABG PCO2 43 mmHg (35-45); ABG PH 7.21 (7.35-7.45); ABG PO2 82 mmHg (80-105); ABG TCO2 18
[2020-10-21] MEDS ORDERED: CALCIUM CHLORIDE 13.6 MEQ in SODIUM CHLORIDE 0.9% 100 ML 100 ML IV ONE (14:00)
[2020-10-21] MEDS ORDERED: MANNITOL 25% 12.5GM/50ML 50 ML ONE (14:22)
[2020-10-21] MEDS ORDERED: ALBUMIN 25% 12.5GM 50ML 100 ML IV ONE (14:22)
[2020-10-21 15:41] LABS: CREATINE KINASE MB 3.8 ng/mL (0-5.0)
[2020-10-21] MEDS ORDERED: HEPARIN SOD (PORCINE) 1000 UNIT/ML SDV IV PRN (16:00)
[2020-10-21] MEDS ORDERED: MANNITOL 25% 12.5GM/50 ML VIAL IV PRN (16:00)
[2020-10-21] MEDS ORDERED: ALBUMIN 25% 12.5GM 0.25 GM/ML BTL IV PRN (16:00)
[2020-10-21] MEDS ORDERED: SODIUM CHLORIDE 0.9% 1000ML 2,000 ML IV PRN (16:00)
[2020-10-21] MEDS: ENOXAPARIN SOD INJ 40 MG/0.4 ML SYR SC SCH (16:42)
[2020-10-21] MEDS: ROCURONIUM BROMIDE 1,250 MG in SODIUM CHLORIDE 0.9% 250ML 125 ML IV SCH (19:21)
[2020-10-21] MEDS: INSULIN GLARGINE 100 UNITS/ML VIAL SQ SCH (20:28)
[2020-10-22] VITALS (16 sets, daily range): BP systolic 96–154; BP diastolic 44–78
[2020-10-22 04:52] LABS: BASOPHILS % 0.3 % (0.0-1.0); EOSINOPHILS # (AUTO) 0.1 (0.0-0.4); EOSINOPHILS % 0.9 % (0.0-6.0); HEMATOCRIT 25.1 % (34.2-44.1); HEMOGLOBIN 7.9 g/dL (12.0-16.0); LYMPHOCYTES # (AUTO) 0.7 (1.0-3.2); LYMPHOCYTES % 4.8 % (18.0-39.1); MEAN CORPUSCULAR HEMOGLOBIN 29.3 pg (28-32); MEAN CORPUSCULAR HGB CONC 31.5 g/dL (31-35); MONOCYTES % 6.9 % (4.4-11.3); NEUTROPHILS # (AUTO) 12.3 (2.1-6.9); NEUTROPHILS % 85.5 % (38.7-80.0); PLATELET COUNT 246 x10e3/uL (140-360); RED CELL DISTRIBUTION WIDTH 14.6 % (11.7-14.4)
[2020-10-22 05:22] LABS: ALBUMIN 1.5 g/dL (3.5-5.0); ALBUMIN/GLOBULIN RATIO 0.4 (0.8-2.0); ANION GAP 30.8 mmol/L (8-16); CREATININE, SERUM 2.78 mg/dL (0.57-1.11); POTASSIUM 4.8 mmol/L (3.5-5.1)
[2020-10-22] MEDS: INSULIN REGULAR, HUMAN 100 UNIT/1 ML 3ML VIAL SQ SCH ×4 (06:59→23:15)
[2020-10-22] MEDS: METOPROLOL TARTRATE 25 MG TAB PO SCH ×5 (08:02→23:15)
[2020-10-22] MEDS: ASPIRIN 81 MG CHEW TAB PO SCH (08:37)
[2020-10-22] MEDS: MEROPENEM 500MG/ NS 50ML 50 ML IV SCH ×2 (08:37→20:53)
[2020-10-22 10:50] LABS: ABG HCO3 23 mmol/L (22-26); ABG PCO2 49 mmHg (35-45); ABG PH 7.28 (7.35-7.45); ABG PO2 192 mmHg (80-105); ABG TCO2 24
[2020-10-22] MEDS: SODIUM BICARBONATE 8.4% 150 ML in DEXTROSE 5% 1,000 ML IV SCH (13:20)
[2020-10-22 13:41] LABS: ABG HCO3 23 mmol/L (22-26); ABG PCO2 41 mmHg (35-45); ABG PH 7.35 (7.35-7.45); ABG PO2 92 mmHg (80-105); ABG TCO2 24
[2020-10-22] MEDS: ENOXAPARIN SOD INJ 40 MG/0.4 ML SYR SC SCH (17:01)
[2020-10-22] MEDS: AMIODARONE HCL 200 MG TAB PO SCH (19:17)
[2020-10-22] MEDS: ROCURONIUM BROMIDE 1,250 MG in SODIUM CHLORIDE 0.9% 250ML 125 ML IV SCH (19:18)
[2020-10-22] MEDS ORDERED: DIGOXIN INJ 0.25 MG/ML 2 ML AMP IV ONE (20:45)
[2020-10-22] MEDS: INSULIN GLARGINE 100 UNITS/ML VIAL SQ SCH (20:56)
[2020-10-23] VITALS (32 sets, daily range): BP systolic 84–159; BP diastolic 38–86
[2020-10-23 04:47] LABS: BASOPHILS % 0.2 % (0.0-1.0); EOSINOPHILS # (AUTO) 0.1 (0.0-0.4); EOSINOPHILS % 0.8 % (0.0-6.0); HEMATOCRIT 25.1 % (34.2-44.1); HEMOGLOBIN 8.3 g/dL (12.0-16.0); LYMPHOCYTES # (AUTO) 0.7 (1.0-3.2); MEAN CORPUSCULAR HEMOGLOBIN 29.1 pg (28-32); MEAN CORPUSCULAR HGB CONC 33.1 g/dL (31-35); MEAN CORPUSCULAR VOLUME 88.1 fL (81-99); MONOCYTES # (AUTO) 0.9 (0.2-0.8); NEUTROPHILS # (AUTO) 15.3 (2.1-6.9); NEUTROPHILS % 87.9 % (38.7-80.0); PLATELET COUNT 231 x10e3/uL (140-360); RED BLOOD COUNT 2.85 x10e6/uL (3.6-5.1); RED CELL DISTRIBUTION WIDTH 14.3 % (11.7-14.4)
[2020-10-23] MEDS: METOPROLOL TARTRATE 25 MG TAB PO SCH ×3 (05:03→18:11)
[2020-10-23 05:07] LABS: ALBUMIN 1.5 g/dL (3.5-5.0); ALBUMIN/GLOBULIN RATIO 0.4 (0.8-2.0); ANION GAP 16.3 mmol/L (8-16); CALCIUM 7.7 mg/dL (8.4-10.2); CREATININE, SERUM 2.16 mg/dL (0.57-1.11); POTASSIUM 4.3 mmol/L (3.5-5.1)
[2020-10-23 06:54] LABS: ABG HCO3 29 mmol/L (22-26); ABG PCO2 43 mmHg (35-45); ABG PH 7.44 (7.35-7.45); ABG PO2 75 mmHg (80-105); ABG TCO2 30
[2020-10-23] MEDS: INSULIN REGULAR, HUMAN 100 UNIT/1 ML 3ML VIAL SQ SCH ×3 (07:00→18:18)
[2020-10-23] MEDS: AMIODARONE HCL 200 MG TAB PO SCH ×3 (08:40→20:42)
[2020-10-23] MEDS: ASPIRIN 81 MG CHEW TAB PO SCH (08:40)
[2020-10-23] MEDS: MEROPENEM 500MG/ NS 50ML 50 ML IV SCH ×2 (08:40→21:04)
[2020-10-23] MEDS: ENOXAPARIN 30 MG/0.3 ML SYR SC SCH (11:45)
[2020-10-23] MEDS ORDERED: ALBUMIN 25% 12.5GM 0.25 GM/ML BTL IV ONE ×2 (12:23→21:00)
[2020-10-23] MEDS: FUROSEMIDE INJ 100 MG in SODIUM CHLORIDE 0.9% 100 ML 90 ML IV SCH (14:11)
[2020-10-23] MEDS: INSULIN GLARGINE 100 UNITS/ML VIAL SQ SCH (21:27)
[2020-10-24] VITALS (44 sets, daily range): BP systolic 62–157; BP diastolic 30–99
[2020-10-24] MEDS: METOPROLOL TARTRATE 25 MG TAB PO SCH ×5 (00:25→23:39)
[2020-10-24] MEDS: INSULIN REGULAR, HUMAN 100 UNIT/1 ML 3ML VIAL SQ SCH ×5 (00:43→23:40)
[2020-10-24 04:42] LABS: BASOPHILS # (AUTO) 0.1 (0.0-0.1); BASOPHILS % 0.4 % (0.0-1.0); HEMATOCRIT 23.7 % (34.2-44.1); HEMOGLOBIN 7.6 g/dL (12.0-16.0); LYMPHOCYTES # (AUTO) 2.2 (1.0-3.2); LYMPHOCYTES % 9.6 % (18.0-39.1); MEAN CORPUSCULAR HGB CONC 32.1 g/dL (31-35); MEAN CORPUSCULAR VOLUME 90.5 fL (81-99); MONOCYTES # (AUTO) 1.8 (0.2-0.8); MONOCYTES % 7.6 % (4.4-11.3); NEUTROPHILS # (AUTO) 16.6 (2.1-6.9); NEUTROPHILS % 72.5 % (38.7-80.0); PLATELET COUNT 252 x10e3/uL (140-360); RED BLOOD COUNT 2.62 x10e6/uL (3.6-5.1); RED CELL DISTRIBUTION WIDTH 14.8 % (11.7-14.4)
[2020-10-24 05:01] LABS: ALBUMIN 2.2 g/dL (3.5-5.0); ALBUMIN/GLOBULIN RATIO 0.6 (0.8-2.0); CALCIUM 7.9 mg/dL (8.4-10.2); CREATININE, SERUM 3.3 mg/dL (0.57-1.11)
[2020-10-24] MEDS: AMIODARONE HCL 200 MG TAB PO SCH (09:07)
[2020-10-24] MEDS: FUROSEMIDE INJ 100 MG in SODIUM CHLORIDE 0.9% 100 ML 90 ML IV SCH (09:07)
[2020-10-24] MEDS: MEROPENEM 500MG/ NS 50ML 50 ML IV SCH ×2 (09:07→21:10)
[2020-10-24] MEDS: ASPIRIN 81 MG CHEW TAB PO SCH (09:07)
[2020-10-24] MEDS: LACTULOSE SYRUP 20 GM/30 ML UDC PO SCH (11:43)
[2020-10-24] MEDS ORDERED: ENOXAPARIN SOD INJ 40 MG/0.4 ML SYR SC SCH (17:00)
[2020-10-24 17:04] LABS: ABG HCO3 28 mmol/L (22-26); ABG PCO2 45 mmHg (35-45); ABG PO2 65 mmHg (80-105); ABG TCO2 29
[2020-10-24] MEDS: ENOXAPARIN 30 MG/0.3 ML SYR SC SCH (17:49)
[2020-10-24] MEDS: INSULIN GLARGINE 100 UNITS/ML VIAL SQ SCH (21:23)
[2020-10-25] VITALS (24 sets, daily range): BP systolic 119–161; BP diastolic 41–63
[2020-10-25 04:33] LABS: BASOPHILS # (AUTO) 0.1 (0.0-0.1); BASOPHILS % 0.4 % (0.0-1.0); EOSINOPHILS # (AUTO) 0.2 (0.0-0.4); EOSINOPHILS % 0.7 % (0.0-6.0); LYMPHOCYTES # (AUTO) 2.4 (1.0-3.2); LYMPHOCYTES % 10.2 % (18.0-39.1); MEAN CORPUSCULAR HEMOGLOBIN 28.6 pg (28-32); MEAN CORPUSCULAR HGB CONC 31.6 g/dL (31-35); MEAN CORPUSCULAR VOLUME 90.5 fL (81-99); MONOCYTES % 8.5 % (4.4-11.3); NEUTROPHILS # (AUTO) 15.4 (2.1-6.9); NEUTROPHILS % 66.8 % (38.7-80.0); PLATELET COUNT 167 x10e3/uL (140-360); RED BLOOD COUNT 2.52 x10e6/uL (3.6-5.1); RED CELL DISTRIBUTION WIDTH 14.7 % (11.7-14.4)
[2020-10-25 04:52] LABS: ALBUMIN 2.5 g/dL (3.5-5.0); ALBUMIN/GLOBULIN RATIO 0.7 (0.8-2.0); ANION GAP 18.9 mmol/L (8-16); CREATININE, SERUM 2.35 mg/dL (0.57-1.11)
[2020-10-25 04:59] LABS: POTASSIUM 3.9 mmol/L (3.5-5.1)
[2020-10-25 05:18] LABS: HEMATOCRIT 22.8 % (34.2-44.1); HEMOGLOBIN 7.2 g/dL (12.0-16.0)
[2020-10-25] MEDS: METOPROLOL TARTRATE 25 MG TAB PO SCH ×3 (05:32→16:55)
[2020-10-25] MEDS: FUROSEMIDE INJ 100 MG in SODIUM CHLORIDE 0.9% 100 ML 90 ML IV SCH (05:32)
[2020-10-25] MEDS: INSULIN REGULAR, HUMAN 100 UNIT/1 ML 3ML VIAL SQ SCH ×4 (05:43→23:55)
[2020-10-25] MEDS: LACTULOSE SYRUP 20 GM/30 ML UDC PO SCH ×2 (08:09→16:54)
[2020-10-25] MEDS: MEROPENEM 500MG/ NS 50ML 50 ML IV SCH ×2 (08:09→21:50)
[2020-10-25] MEDS: ASPIRIN 81 MG CHEW TAB PO SCH (08:09)
[2020-10-25] MEDS: ENOXAPARIN 30 MG/0.3 ML SYR SC SCH (16:54)
[2020-10-25 17:47] LABS: ABG PCO2 48 mmHg (35-45); ABG PH 7.38 (7.35-7.45); ABG PO2 74 mmHg (80-105)
[2020-10-25 17:48] LABS: ABG HCO3 29 mmol/L (22-26); ABG TCO2 30
[2020-10-25] MEDS: INSULIN GLARGINE 100 UNITS/ML VIAL SQ SCH (21:50)
[2020-10-26] VITALS (24 sets, daily range): BP systolic 99–149; BP diastolic 36–56
[2020-10-26] MEDS: METOPROLOL TARTRATE 25 MG TAB PO SCH ×4 (00:27→17:08)
[2020-10-26 05:13] LABS: BASOPHILS # (AUTO) 0.1 (0.0-0.1); BASOPHILS % 0.5 % (0.0-1.0); EOSINOPHILS # (AUTO) 0.2 (0.0-0.4); EOSINOPHILS % 0.7 % (0.0-6.0); LYMPHOCYTES # (AUTO) 2.2 (1.0-3.2); LYMPHOCYTES % 8.6 % (18.0-39.1); MEAN CORPUSCULAR HEMOGLOBIN 29.6 pg (28-32); MEAN CORPUSCULAR VOLUME 89.6 fL (81-99); MONOCYTES # (AUTO) 2.4 (0.2-0.8); MONOCYTES % 9.2 % (4.4-11.3); NEUTROPHILS # (AUTO) 17.3 (2.1-6.9); NEUTROPHILS % 67.2 % (38.7-80.0); PLATELET COUNT 195 x10e3/uL (140-360); RED CELL DISTRIBUTION WIDTH 14.9 % (11.7-14.4)
[2020-10-26 05:27] LABS: INR 1.35; PARTIAL THROMBOPLASTIN TIME 35.5 seconds (23.8-35.5); PROTHROMBIN TIME 17.3 seconds (11.9-14.5)
[2020-10-26 05:37] LABS: ALBUMIN 2.3 g/dL (3.5-5.0); ALBUMIN/GLOBULIN RATIO 0.7 (0.8-2.0); ANION GAP 16.2 mmol/L (8-16); CALCIUM 9.9 mg/dL (8.4-10.2); CREATININE, SERUM 2.99 mg/dL (0.57-1.11); POTASSIUM 3.2 mmol/L (3.5-5.1)
[2020-10-26 05:42] LABS: HEMATOCRIT 22.4 % (34.2-44.1); HEMOGLOBIN 7.4 g/dL (12.0-16.0)
[2020-10-26] MEDS: INSULIN REGULAR, HUMAN 100 UNIT/1 ML 3ML VIAL SQ SCH ×3 (06:22→18:00)
[2020-10-26] MEDS: FUROSEMIDE INJ 10 MG/ML 4 ML VIAL IV SCH (07:40)
[2020-10-26] MEDS: MEROPENEM 500MG/ NS 50ML 50 ML IV SCH ×2 (07:40→22:15)
[2020-10-26] MEDS: ASPIRIN 81 MG CHEW TAB PO SCH (07:40)
[2020-10-26] MEDS: LACTULOSE SYRUP 20 GM/30 ML UDC PO SCH ×2 (07:40→17:07)
[2020-10-26 08:36] LABS: BAND NEUTROPHILS % (MANUAL) 12 %; LYMPHOCYTES % (MANUAL) 7 % (19-48); MONOCYTES % (MANUAL) 9 % (3.4-9.0); NEUTROPHILS % (MANUAL) 72 % (40-74)
[2020-10-26 08:37] LABS: HYPOCHROMASIA SLIGHT
[2020-10-26] MEDS: THIAMINE HCL INJ 100 MG/ML 2ML VIAL IV SCH (09:33)
[2020-10-26 12:26] LABS: ABG HCO3 30 mmol/L (22-26); ABG PCO2 46 mmHg (35-45); ABG PH 7.42 (7.35-7.45); ABG PO2 67 mmHg (80-105); ABG TCO2 31
[2020-10-26] MEDS ORDERED: WATER STERILE 10 ML VIAL ONE (12:40)
[2020-10-26] MEDS ORDERED: VECURONIUM BROMIDE FOR INJ 20 MG VIAL ONE (12:40)
[2020-10-26] MEDS ORDERED: ETOMIDATE 2 MG/ML 10 ML INJ IV ONE (12:40)
[2020-10-26] MEDS: ENOXAPARIN 30 MG/0.3 ML SYR SC SCH (17:07)
[2020-10-26] MEDS: INSULIN GLARGINE 100 UNITS/ML VIAL SQ SCH (22:10)
[2020-10-27] VITALS (24 sets, daily range): BP systolic 91–132; BP diastolic 33–62
[2020-10-27] MEDS: METOPROLOL TARTRATE 25 MG TAB PO SCH ×4 (00:45→16:37)
[2020-10-27] MEDS: INSULIN REGULAR, HUMAN 100 UNIT/1 ML 3ML VIAL SQ SCH ×4 (00:50→18:00)
[2020-10-27 04:56] LABS: BASOPHILS # (AUTO) 0.1 (0.0-0.1); BASOPHILS % 0.3 % (0.0-1.0); EOSINOPHILS # (AUTO) 0.2 (0.0-0.4); EOSINOPHILS % 0.9 % (0.0-6.0); HEMATOCRIT 23.4 % (34.2-44.1); HEMOGLOBIN 7.4 g/dL (12.0-16.0); LYMPHOCYTES # (AUTO) 1.7 (1.0-3.2); LYMPHOCYTES % 7.5 % (18.0-39.1); MEAN CORPUSCULAR HEMOGLOBIN 28.9 pg (28-32); MEAN CORPUSCULAR HGB CONC 31.6 g/dL (31-35); MEAN CORPUSCULAR VOLUME 91.4 fL (81-99); MONOCYTES # (AUTO) 1.9 (0.2-0.8); MONOCYTES % 8.7 % (4.4-11.3); NEUTROPHILS # (AUTO) 16.3 (2.1-6.9); NEUTROPHILS % 73.9 % (38.7-80.0); PLATELET COUNT 153 x10e3/uL (140-360); RED BLOOD COUNT 2.56 x10e6/uL (3.6-5.1); RED CELL DISTRIBUTION WIDTH 15.7 % (11.7-14.4)
[2020-10-27 05:22] LABS: ALBUMIN 2.1 g/dL (3.5-5.0); ALBUMIN/GLOBULIN RATIO 0.6 (0.8-2.0); ANION GAP 13.6 mmol/L (8-16); CALCIUM 7.6 mg/dL (8.4-10.2); CREATININE, SERUM 1.59 mg/dL (0.57-1.11); POTASSIUM 3.6 mmol/L (3.5-5.1)
[2020-10-27 07:06] LABS: ABG PCO2 49 mmHg (35-45)
[2020-10-27 07:07] LABS: ABG HCO3 31 mmol/L (22-26); ABG PO2 73 mmHg (80-105); ABG TCO2 32
[2020-10-27] MEDS: MEROPENEM 500MG/ NS 50ML 50 ML IV SCH ×2 (07:58→20:59)
[2020-10-27] MEDS: THIAMINE HCL INJ 100 MG/ML 2ML VIAL IV SCH (07:58)
[2020-10-27] MEDS: LACTULOSE SYRUP 20 GM/30 ML UDC PO SCH ×2 (07:58→16:36)
[2020-10-27] MEDS: FUROSEMIDE INJ 10 MG/ML 4 ML VIAL IV SCH (07:58)
[2020-10-27] MEDS: ASPIRIN 81 MG CHEW TAB PO SCH (07:58)
[2020-10-27 09:09] LABS: BAND NEUTROPHILS % (MANUAL) 3 %; EOSINOPHILS % (MANUAL) 4 % (0-7); LYMPHOCYTES % (MANUAL) 3 % (19-48); METAMYELOCYTES % (MANUAL) 2 % (0-0); MONOCYTES % (MANUAL) 8 % (3.4-9.0); NEUTROPHILS % (MANUAL) 80 % (40-74); NUCLEATED RED BLOOD CELLS 9
[2020-10-27 09:10] LABS: POLYCHROMASIA FEW
[2020-10-27 09:11] LABS: ANISOCYTOSIS SLIGHT; PLATELET ESTIMATE ADEQUATE; PLATELET MORPHOLOGY COMMENT NORMAL; RBC MORPHOLOGY COMMENT ABNORMAL; TARGET CELLS FEW
[2020-10-27] MEDS: ENOXAPARIN 30 MG/0.3 ML SYR SC SCH (16:36)
[2020-10-27] MEDS: INSULIN GLARGINE 100 UNITS/ML VIAL SQ SCH (21:01)
[2020-10-28] VITALS (14 sets, daily range): BP systolic 90–147; BP diastolic 31–60
[2020-10-28] MEDS: INSULIN REGULAR, HUMAN 100 UNIT/1 ML 3ML VIAL SQ SCH ×4 (00:30→17:41)
[2020-10-28] MEDS: METOPROLOL TARTRATE 25 MG TAB PO SCH ×4 (00:30→17:41)
[2020-10-28 05:30] LABS: BASOPHILS # (AUTO) 0.1 (0.0-0.1); BASOPHILS % 0.3 % (0.0-1.0); EOSINOPHILS # (AUTO) 0.1 (0.0-0.4); EOSINOPHILS % 0.2 % (0.0-6.0); HEMATOCRIT 24.4 % (34.2-44.1); HEMOGLOBIN 7.7 g/dL (12.0-16.0); LYMPHOCYTES # (AUTO) 0.9 (1.0-3.2); LYMPHOCYTES % 3.8 % (18.0-39.1); MEAN CORPUSCULAR HEMOGLOBIN 29.4 pg (28-32); MEAN CORPUSCULAR HGB CONC 31.6 g/dL (31-35); MEAN CORPUSCULAR VOLUME 93.1 fL (81-99); MONOCYTES # (AUTO) 1.3 (0.2-0.8); MONOCYTES % 5.8 % (4.4-11.3); NEUTROPHILS # (AUTO) 19.2 (2.1-6.9); NEUTROPHILS % 85.3 % (38.7-80.0); PLATELET COUNT 179 x10e3/uL (140-360); RED BLOOD COUNT 2.62 x10e6/uL (3.6-5.1); RED CELL DISTRIBUTION WIDTH 18.5 % (11.7-14.4)
[2020-10-28 06:00] LABS: ALBUMIN 1.9 g/dL (3.5-5.0); ALBUMIN/GLOBULIN RATIO 0.5 (0.8-2.0); ANION GAP 17.9 mmol/L (8-16); CALCIUM 7.8 mg/dL (8.4-10.2); CREATININE, SERUM 1.76 mg/dL (0.57-1.11); POTASSIUM 3.9 mmol/L (3.5-5.1)
[2020-10-28] MEDS ORDERED: VANCOMYCIN 1GM/NS 250 ML 250 ML IV ONE ×2 (08:45→15:45)
[2020-10-28] MEDS: FUROSEMIDE INJ 10 MG/ML 4 ML VIAL IV SCH (08:56)
[2020-10-28] MEDS: LACTULOSE SYRUP 20 GM/30 ML UDC PO SCH ×2 (08:56→17:41)
[2020-10-28] MEDS: ASPIRIN 81 MG CHEW TAB PO SCH (08:56)
[2020-10-28] MEDS: MEROPENEM 500MG/ NS 50ML 50 ML IV SCH ×2 (08:56→20:44)
[2020-10-28] MEDS: THIAMINE HCL INJ 100 MG/ML 2ML VIAL IV SCH (08:56)
[2020-10-28 12:14] LABS: ABG HCO3 30 mmol/L (22-26); ABG PCO2 49 mmHg (35-45); ABG PO2 78 mmHg (80-105); ABG TCO2 32
[2020-10-28] MEDS: LEVETIRACETAM 500MG/5ML VIAL 500 MG in SODIUM CHLORIDE 0.9% 100 ML 100 ML IV SCH ×2 (13:03→21:29)
[2020-10-28] MEDS ORDERED: AMANTADINE HCL 100 MG CAP PO SCH (17:00)
[2020-10-28] MEDS: PRAMIPEXOLE DIHYDROCHLORIDE 0.25 MG TAB PO SCH (17:41)
[2020-10-28] MEDS: ENOXAPARIN 30 MG/0.3 ML SYR SC SCH (17:41)
[2020-10-28] MEDS: INSULIN GLARGINE 100 UNITS/ML VIAL SQ SCH (20:45)
[2020-10-29] VITALS (26 sets, daily range): BP systolic 98–130; BP diastolic 32–47
[2020-10-29] MEDS: INSULIN REGULAR, HUMAN 100 UNIT/1 ML 3ML VIAL SQ SCH ×5 (00:30→22:46)
[2020-10-29 04:49] LABS: BASOPHILS % 0.2 % (0.0-1.0); EOSINOPHILS % 0.2 % (0.0-6.0); LYMPHOCYTES # (AUTO) 0.8 (1.0-3.2); LYMPHOCYTES % 4.5 % (18.0-39.1); MEAN CORPUSCULAR HEMOGLOBIN 29.7 pg (28-32); MEAN CORPUSCULAR HGB CONC 30.7 g/dL (31-35); MEAN CORPUSCULAR VOLUME 96.6 fL (81-99); MONOCYTES # (AUTO) 1.5 (0.2-0.8); MONOCYTES % 8.6 % (4.4-11.3); NEUTROPHILS # (AUTO) 15.1 (2.1-6.9); NEUTROPHILS % 83.9 % (38.7-80.0); PLATELET COUNT 212 x10e3/uL (140-360); RED BLOOD COUNT 2.36 x10e6/uL (3.6-5.1); RED CELL DISTRIBUTION WIDTH 19.5 % (11.7-14.4)
[2020-10-29 04:50] LABS: HEMATOCRIT 22.8 % (34.2-44.1)
[2020-10-29 05:10] LABS: ALBUMIN 1.7 g/dL (3.5-5.0); ALBUMIN/GLOBULIN RATIO 0.5 (0.8-2.0); ANION GAP 18.4 mmol/L (8-16); CALCIUM 7.4 mg/dL (8.4-10.2); CREATININE, SERUM 1.85 mg/dL (0.57-1.11); POTASSIUM 3.4 mmol/L (3.5-5.1)
[2020-10-29] MEDS: METOPROLOL TARTRATE 25 MG TAB PO SCH ×5 (05:46→22:45)
[2020-10-29] MEDS ORDERED: PROPOFOL IV EMULSION 10MG/ML 100 ML ONE (06:48)
[2020-10-29] MEDS: PROPOFOL IV EMULSION 10MG/ML 100 ML IV PRN (06:52)
[2020-10-29] MEDS: LACTULOSE SYRUP 20 GM/30 ML UDC PO SCH ×2 (10:49→17:00)
[2020-10-29] MEDS: MEROPENEM 500MG/ NS 50ML 50 ML IV SCH ×2 (10:49→21:05)
[2020-10-29] MEDS: FUROSEMIDE INJ 10 MG/ML 4 ML VIAL IV SCH (10:49)
[2020-10-29] MEDS: ASPIRIN 81 MG CHEW TAB PO SCH (10:49)
[2020-10-29] MEDS: PRAMIPEXOLE DIHYDROCHLORIDE 0.25 MG TAB PO SCH ×2 (10:49→17:00)
[2020-10-29] MEDS: LEVETIRACETAM 500MG/5ML VIAL 500 MG in SODIUM CHLORIDE 0.9% 100 ML 100 ML IV SCH ×2 (11:41→21:06)
[2020-10-29] MEDS ORDERED: HEPARIN SOD (PORCINE) 1000 UNIT/ML SDV IV PRN (12:45)
[2020-10-29] MEDS: ENOXAPARIN 30 MG/0.3 ML SYR SC SCH (17:00)
[2020-10-29 17:24] LABS: ABG PCO2 47 mmHg (35-45); ABG PH 7.43 (7.35-7.45)
[2020-10-29 17:25] LABS: ABG HCO3 31 mmol/L (22-26); ABG PO2 80 mmHg (80-105); ABG TCO2 32
[2020-10-29] MEDS: VASOPRESSIN 60 UNIT in DEXTROSE 5% 50ML 57 ML IV PRN (18:31)
[2020-10-29] MEDS: INSULIN GLARGINE 100 UNITS/ML VIAL SQ SCH (21:06)
[2020-10-30] VITALS (16 sets, daily range): BP systolic 108–150; BP diastolic 31–48
[2020-10-30] MEDS: METOPROLOL TARTRATE 25 MG TAB PO SCH ×3 (04:46→18:00)
[2020-10-30] MEDS: INSULIN REGULAR, HUMAN 100 UNIT/1 ML 3ML VIAL SQ SCH ×3 (04:47→18:48)
[2020-10-30 05:21] LABS: BASOPHILS % 0.1 % (0.0-1.0); EOSINOPHILS # (AUTO) 0.1 (0.0-0.4); EOSINOPHILS % 0.4 % (0.0-6.0); LYMPHOCYTES # (AUTO) 0.9 (1.0-3.2); MEAN CORPUSCULAR HEMOGLOBIN 29.2 pg (28-32); MEAN CORPUSCULAR HGB CONC 29.8 g/dL (31-35); MONOCYTES # (AUTO) 1.2 (0.2-0.8); MONOCYTES % 8.8 % (4.4-11.3); NEUTROPHILS # (AUTO) 11.1 (2.1-6.9); NEUTROPHILS % 82.3 % (38.7-80.0); PLATELET COUNT 205 x10e3/uL (140-360); RED BLOOD COUNT 2.02 x10e6/uL (3.6-5.1); RED CELL DISTRIBUTION WIDTH 20.1 % (11.7-14.4)
[2020-10-30 05:35] LABS: HEMATOCRIT 19.8 % (34.2-44.1); HEMOGLOBIN 5.9 g/dL (12.0-16.0)
[2020-10-30 05:36] LABS: ALBUMIN/GLOBULIN RATIO 0.7 (0.8-2.0); ANION GAP 13.8 mmol/L (8-16); CALCIUM 7.2 mg/dL (8.4-10.2); CREATININE, SERUM 1.34 mg/dL (0.57-1.11)
[2020-10-30 05:49] LABS: POTASSIUM 2.8 mmol/L (3.5-5.1)
[2020-10-30] MEDS ORDERED: SODIUM CHLORIDE 0.9% 250ML 250 ML IV ONE (06:15)
[2020-10-30] MEDS ORDERED: POTASSIUM CHLORIDE 20MEQ/100ML 100 ML IV ONE ×2 (06:15→07:00)
[2020-10-30] MEDS: LACTULOSE SYRUP 20 GM/30 ML UDC PO SCH ×2 (07:57→18:29)
[2020-10-30] MEDS: ASPIRIN 81 MG CHEW TAB PO SCH (07:57)
[2020-10-30] MEDS: MEROPENEM 500MG/ NS 50ML 50 ML IV SCH ×2 (07:57→21:12)
[2020-10-30] MEDS: FUROSEMIDE INJ 10 MG/ML 4 ML VIAL IV SCH (07:57)
[2020-10-30] MEDS: PRAMIPEXOLE DIHYDROCHLORIDE 0.25 MG TAB PO SCH ×3 (07:57→18:29)
[2020-10-30] MEDS: LEVETIRACETAM 500MG/5ML VIAL 500 MG in SODIUM CHLORIDE 0.9% 100 ML 100 ML IV SCH ×2 (07:58→21:12)
[2020-10-30] MEDS ORDERED: SODIUM CHLORIDE 0.9% 250ML 250 ML ONE (10:04)
[2020-10-30 12:15] LABS: ABG HCO3 30 mmol/L (22-26); ABG PCO2 46 mmHg (35-45); ABG PH 7.42 (7.35-7.45); ABG PO2 73 mmHg (80-105); ABG TCO2 32
[2020-10-30] MEDS ORDERED: DEXTROSE 5% 1,000 ML IV ONE (14:00)
[2020-10-30] MEDS: INSULIN GLARGINE 100 UNITS/ML VIAL SQ SCH (21:12)
[2020-10-31] VITALS (17 sets, daily range): BP systolic 104–137; BP diastolic 32–40
[2020-10-31] MEDS: INSULIN REGULAR, HUMAN 100 UNIT/1 ML 3ML VIAL SQ SCH ×4 (00:03→18:26)
[2020-10-31] MEDS: PROPOFOL IV EMULSION 10MG/ML 100 ML IV PRN (03:36)
[2020-10-31] MEDS: METOPROLOL TARTRATE 25 MG TAB PO SCH ×5 (06:00→23:09)
[2020-10-31 06:20] LABS: BASOPHILS % 0.3 % (0.0-1.0); EOSINOPHILS # (AUTO) 0.2 (0.0-0.4); EOSINOPHILS % 1.5 % (0.0-6.0); HEMATOCRIT 25.5 % (34.2-44.1); HEMOGLOBIN 8.1 g/dL (12.0-16.0); LYMPHOCYTES % 6.3 % (18.0-39.1); MEAN CORPUSCULAR HEMOGLOBIN 30.3 pg (28-32); MEAN CORPUSCULAR HGB CONC 31.8 g/dL (31-35); MEAN CORPUSCULAR VOLUME 95.5 fL (81-99); MONOCYTES % 6.2 % (4.4-11.3); NEUTROPHILS # (AUTO) 13.3 (2.1-6.9); NEUTROPHILS % 84.7 % (38.7-80.0); PLATELET COUNT 231 x10e3/uL (140-360); RED BLOOD COUNT 2.67 x10e6/uL (3.6-5.1); RED CELL DISTRIBUTION WIDTH 19.6 % (11.7-14.4)
[2020-10-31 06:44] LABS: ALBUMIN 1.9 g/dL (3.5-5.0); ALBUMIN/GLOBULIN RATIO 0.6 (0.8-2.0); ANION GAP 16.6 mmol/L (8-16); CALCIUM 7.4 mg/dL (8.4-10.2); CREATININE, SERUM 1.13 mg/dL (0.57-1.11)
[2020-10-31 06:46] LABS: POTASSIUM 2.6 mmol/L (3.5-5.1)
[2020-10-31] MEDS: PRAMIPEXOLE DIHYDROCHLORIDE 0.25 MG TAB PO SCH ×4 (07:26→17:14)
[2020-10-31] MEDS: LACTULOSE SYRUP 20 GM/30 ML UDC PO SCH ×2 (08:28→17:14)
[2020-10-31] MEDS: LEVETIRACETAM 500MG/5ML VIAL 500 MG in SODIUM CHLORIDE 0.9% 100 ML 100 ML IV SCH ×2 (08:28→21:26)
[2020-10-31] MEDS: FUROSEMIDE INJ 10 MG/ML 4 ML VIAL IV SCH (08:28)
[2020-10-31] MEDS: ASPIRIN 81 MG CHEW TAB PO SCH (08:28)
[2020-10-31 10:04] LABS: ABG HCO3 30 mmol/L (22-26); ABG PCO2 46 mmHg (35-45); ABG PH 7.42 (7.35-7.45); ABG PO2 77 mmHg (80-105); ABG TCO2 31
[2020-10-31] MEDS: VANCOMYCIN 1GM/NS 250 ML 250 ML IV SCH (12:22)
[2020-10-31] MEDS ORDERED: KCL 20 MEQ PACKET/ ORAL SOLN NG ONE ×2 (12:45→14:00)
[2020-10-31 17:57] LABS: ANION GAP 14.5 mmol/L (8-16); CALCIUM 7.5 mg/dL (8.4-10.2); CREATININE, SERUM 1.12 mg/dL (0.57-1.11); POTASSIUM 3.5 mmol/L (3.5-5.1)
[2020-10-31] MEDS ORDERED: POTASSIUM CHLORIDE 20MEQ/15ML UDC NG ONE (18:30)
[2020-10-31] MEDS ORDERED: KCL 20 MEQ PACKET/ ORAL SOLN ONE (19:40)
[2020-10-31] MEDS: INSULIN GLARGINE 100 UNITS/ML VIAL SQ SCH (20:08)
[2020-11-01] VITALS (15 sets, daily range): BP systolic 95–140; BP diastolic 34–48
[2020-11-01] MEDS: VASOPRESSIN 60 UNIT in DEXTROSE 5% 50ML 57 ML IV PRN (00:14)
[2020-11-01] MEDS: PROPOFOL IV EMULSION 10MG/ML 100 ML IV PRN ×3 (00:14→10:53)
[2020-11-01] MEDS: INSULIN REGULAR, HUMAN 100 UNIT/1 ML 3ML VIAL SQ SCH ×5 (00:45→22:37)
[2020-11-01] MEDS: METOPROLOL TARTRATE 25 MG TAB PO SCH ×4 (05:46→22:37)
[2020-11-01 06:15] LABS: BASOPHILS % 0.3 % (0.0-1.0); EOSINOPHILS # (AUTO) 0.1 (0.0-0.4); EOSINOPHILS % 0.8 % (0.0-6.0); HEMATOCRIT 26.2 % (34.2-44.1); HEMOGLOBIN 8.1 g/dL (12.0-16.0); LYMPHOCYTES # (AUTO) 0.7 (1.0-3.2); LYMPHOCYTES % 4.6 % (18.0-39.1); MEAN CORPUSCULAR HEMOGLOBIN 29.6 pg (28-32); MEAN CORPUSCULAR HGB CONC 30.9 g/dL (31-35); MEAN CORPUSCULAR VOLUME 95.6 fL (81-99); MONOCYTES # (AUTO) 0.6 (0.2-0.8); NEUTROPHILS # (AUTO) 13.8 (2.1-6.9); NEUTROPHILS % 89.5 % (38.7-80.0); PLATELET COUNT 266 x10e3/uL (140-360); RED BLOOD COUNT 2.74 x10e6/uL (3.6-5.1); RED CELL DISTRIBUTION WIDTH 19.5 % (11.7-14.4)
[2020-11-01 06:50] LABS: ALBUMIN 1.7 g/dL (3.5-5.0); ALBUMIN/GLOBULIN RATIO 0.5 (0.8-2.0); ANION GAP 13.1 mmol/L (8-16); CALCIUM 7.5 mg/dL (8.4-10.2); CREATININE, SERUM 1.04 mg/dL (0.57-1.11); MAGNESIUM 1.5 MG/DL (1.3-2.1); PHOSPHORUS 3.7 MG/DL (2.3-4.7); POTASSIUM 3.1 mmol/L (3.5-5.1)
[2020-11-01] MEDS ORDERED: SODIUM CHLORIDE 0.9% 1000ML 1,000 ML ONE (07:58)
[2020-11-01 08:11] LABS: ABG PCO2 40 mmHg (35-45); ABG PH 7.44 (7.35-7.45); ABG PO2 71 mmHg (80-105)
[2020-11-01 08:12] LABS: ABG HCO3 27 mmol/L (22-26); ABG TCO2 28
[2020-11-01] MEDS: PRAMIPEXOLE DIHYDROCHLORIDE 0.25 MG TAB PO SCH ×4 (09:00→18:27)
[2020-11-01] MEDS ORDERED: NOREPINEPHRINE 8 MG/D5W 250 ML 250 ML IV PRN (09:30)
[2020-11-01] MEDS: LACTULOSE SYRUP 20 GM/30 ML UDC PO SCH ×2 (09:31→17:00)
[2020-11-01] MEDS: ASPIRIN 81 MG CHEW TAB PO SCH (09:35)
[2020-11-01] MEDS: LEVETIRACETAM 500MG/5ML VIAL 500 MG in SODIUM CHLORIDE 0.9% 100 ML 100 ML IV SCH ×2 (10:51→22:37)
[2020-11-01] MEDS: VANCOMYCIN 1GM/NS 250 ML 250 ML IV SCH (10:52)
[2020-11-01] MEDS: FUROSEMIDE INJ 10 MG/ML 4 ML VIAL IV SCH (11:22)
[2020-11-01] MEDS ORDERED: POTASSIUM CHLORIDE 20MEQ/15ML UDC NG ONE ×2 (11:45→12:00)
[2020-11-01] MEDS: ALBUMIN 25% 25GM 100ML 0.25 GM/ML BTL IV SCH ×2 (11:52→22:36)
[2020-11-01] MEDS ORDERED: KCL 20 MEQ PACKET/ ORAL SOLN NG ONE (12:00)
[2020-11-01] MEDS: INSULIN GLARGINE 100 UNITS/ML VIAL SQ SCH (22:37)
[2020-11-02] VITALS (26 sets, daily range): BP systolic 105–149; BP diastolic 35–54
[2020-11-02 03:20] LABS: BASOPHILS % 0.2 % (0.0-1.0); EOSINOPHILS # (AUTO) 0.1 (0.0-0.4); EOSINOPHILS % 0.7 % (0.0-6.0); LYMPHOCYTES # (AUTO) 0.6 (1.0-3.2); LYMPHOCYTES % 4.3 % (18.0-39.1); MEAN CORPUSCULAR HEMOGLOBIN 29.7 pg (28-32); MEAN CORPUSCULAR HGB CONC 30.9 g/dL (31-35); MEAN CORPUSCULAR VOLUME 96.4 fL (81-99); MONOCYTES # (AUTO) 0.4 (0.2-0.8); NEUTROPHILS # (AUTO) 12.2 (2.1-6.9); NEUTROPHILS % 90.8 % (38.7-80.0); PLATELET COUNT 236 x10e3/uL (140-360); RED BLOOD COUNT 1.95 x10e6/uL (3.6-5.1); RED CELL DISTRIBUTION WIDTH 19.3 % (11.7-14.4)
[2020-11-02 03:23] LABS: HEMATOCRIT 18.8 % (34.2-44.1); HEMOGLOBIN 5.8 g/dL (12.0-16.0)
[2020-11-02 03:39] LABS: ALBUMIN 2.2 g/dL (3.5-5.0); ALBUMIN/GLOBULIN RATIO 0.7 (0.8-2.0); ANION GAP 14.5 mmol/L (8-16); CALCIUM 7.6 mg/dL (8.4-10.2); CREATININE, SERUM 0.94 mg/dL (0.57-1.11); MAGNESIUM 1.4 MG/DL (1.3-2.1); POTASSIUM 3.5 mmol/L (3.5-5.1)
[2020-11-02] MEDS ORDERED: SODIUM CHLORIDE 0.9% 250ML 250 ML IV ONE ×2 (03:45→05:00)
[2020-11-02 03:56] LABS: PHOSPHORUS 3.6 MG/DL (2.3-4.7)
[2020-11-02] MEDS ORDERED: PANTOPRAZOLE 40 MG 10ML VIAL IV STA (05:11)
[2020-11-02] MEDS ORDERED: PANTOPRAZOLE INJ 40 MG in SODIUM CHLORIDE 0.9% 50ML 50 ML IV SCH (05:15)
[2020-11-02] MEDS: METOPROLOL TARTRATE 25 MG TAB PO SCH ×4 (05:21→23:17)
[2020-11-02] MEDS: INSULIN REGULAR, HUMAN 100 UNIT/1 ML 3ML VIAL SQ SCH ×4 (05:21→23:17)
[2020-11-02 06:22] LABS: INR 1.29
[2020-11-02] MEDS: PANTOPRAZOL 40MG/SOD CHL 0.9% 50 ML IV SCH ×4 (06:43→21:23)
[2020-11-02] MEDS: LACTULOSE SYRUP 20 GM/30 ML UDC PO SCH ×2 (07:42→16:29)
[2020-11-02] MEDS: PROPOFOL IV EMULSION 10MG/ML 100 ML IV PRN ×2 (07:43→23:07)
[2020-11-02] MEDS: FUROSEMIDE INJ 10 MG/ML 4 ML VIAL IV SCH (08:57)
[2020-11-02] MEDS: PRAMIPEXOLE DIHYDROCHLORIDE 0.25 MG TAB PO SCH ×4 (08:59→16:30)
[2020-11-02] MEDS ORDERED: FAMOTIDINE 20 MG/2 ML VIAL IV SCH (09:00)
[2020-11-02] MEDS: MEROPENEM 500MG 500 MG in SODIUM CHLORIDE 0.9% 50ML 50 ML IV SCH ×2 (09:53→21:22)
[2020-11-02] MEDS ORDERED: MEROPENEM 500 MG VIAL ONE (10:00)
[2020-11-02] MEDS: VANCOMYCIN 1GM/NS 250 ML 250 ML IV SCH (10:37)
[2020-11-02] MEDS: LEVETIRACETAM 500MG/5ML VIAL 500 MG in SODIUM CHLORIDE 0.9% 100 ML 100 ML IV SCH ×2 (10:43→21:23)
[2020-11-02] MEDS ORDERED: SODIUM CHLORIDE 0.9% 250ML 250 ML ONE (11:08)
[2020-11-02 13:42] LABS: ABG HCO3 29 mmol/L (22-26); ABG PCO2 40 mmHg (35-45); ABG PH 7.46 (7.35-7.45); ABG PO2 67 mmHg (80-105); ABG TCO2 30
[2020-11-02 18:01] LABS: HEMATOCRIT 34.5 % (34.2-44.1)
[2020-11-02 18:13] LABS: HEMOGLOBIN 11.5 g/dL (12.0-16.0)
[2020-11-02] MEDS: INSULIN GLARGINE 100 UNITS/ML VIAL SQ SCH (21:00)
[2020-11-03] VITALS (37 sets, daily range): BP systolic 84–148; BP diastolic 30–52
[2020-11-03] MEDS: PANTOPRAZOL 40MG/SOD CHL 0.9% 50 ML IV SCH ×5 (03:06→20:02)
[2020-11-03 05:31] LABS: BASOPHILS % 0.2 % (0.0-1.0); EOSINOPHILS % 0.3 % (0.0-6.0); HEMATOCRIT 32.7 % (34.2-44.1); HEMOGLOBIN 10.8 g/dL (12.0-16.0); LYMPHOCYTES # (AUTO) 0.5 (1.0-3.2); MEAN CORPUSCULAR HEMOGLOBIN 28.7 pg (28-32); MONOCYTES # (AUTO) 0.4 (0.2-0.8); MONOCYTES % 3.1 % (4.4-11.3); NEUTROPHILS # (AUTO) 12.3 (2.1-6.9); NEUTROPHILS % 91.7 % (38.7-80.0); PLATELET COUNT 258 x10e3/uL (140-360); RED BLOOD COUNT 3.76 x10e6/uL (3.6-5.1); RED CELL DISTRIBUTION WIDTH 19.9 % (11.7-14.4)
[2020-11-03 06:00] LABS: ALBUMIN 1.9 g/dL (3.5-5.0); ALBUMIN/GLOBULIN RATIO 0.5 (0.8-2.0); CALCIUM 7.3 mg/dL (8.4-10.2); CREATININE, SERUM 0.91 mg/dL (0.57-1.11)
[2020-11-03] MEDS: METOPROLOL TARTRATE 25 MG TAB PO SCH ×4 (06:00→16:30)
[2020-11-03] MEDS: INSULIN REGULAR, HUMAN 100 UNIT/1 ML 3ML VIAL SQ SCH ×4 (06:08→21:48)
[2020-11-03] MEDS: MEROPENEM 500MG 500 MG in SODIUM CHLORIDE 0.9% 50ML 50 ML IV SCH ×2 (08:38→20:02)
[2020-11-03] MEDS: FUROSEMIDE INJ 10 MG/ML 4 ML VIAL IV SCH (08:38)
[2020-11-03] MEDS: PRAMIPEXOLE DIHYDROCHLORIDE 0.25 MG TAB PO SCH ×3 (08:38→16:29)
[2020-11-03] MEDS: LACTULOSE SYRUP 20 GM/30 ML UDC PO SCH ×2 (08:47→16:29)
[2020-11-03] MEDS: LEVETIRACETAM 500MG/5ML VIAL 500 MG in SODIUM CHLORIDE 0.9% 100 ML 100 ML IV SCH ×2 (09:22→21:47)
[2020-11-03] MEDS: VANCOMYCIN 1GM/NS 250 ML 250 ML IV SCH (10:34)
[2020-11-03 11:02] LABS: ABG PCO2 38 mmHg (35-45); ABG PH 7.41 (7.35-7.45); ABG PO2 110 mmHg (80-105)
[2020-11-03 11:03] LABS: ABG HCO3 24 mmol/L (22-26); ABG TCO2 25
[2020-11-03] MEDS ORDERED: POTASSIUM CHLORIDE 20MEQ/100ML 200 ML IV ONE (15:00)
[2020-11-03] MEDS: PROPOFOL IV EMULSION 10MG/ML 100 ML IV PRN ×2 (15:03→20:02)
[2020-11-03] MEDS: AMANTADINE HCL 100 MG CAP PO SCH (16:29)
[2020-11-03] MEDS ORDERED: VECURONIUM BROMIDE FOR INJ 20 MG VIAL IV STA (19:09)
[2020-11-03] MEDS: INSULIN GLARGINE 100 UNITS/ML VIAL SQ SCH (21:47)
[2020-11-04] VITALS (19 sets, daily range): BP systolic 83–128; BP diastolic 47–65
[2020-11-04] MEDS: PANTOPRAZOL 40MG/SOD CHL 0.9% 50 ML IV SCH (01:03)
[2020-11-04] MEDS: PROPOFOL IV EMULSION 10MG/ML 100 ML IV PRN ×4 (01:03→21:47)
[2020-11-04 05:13] LABS: BASOPHILS % 0.2 % (0.0-1.0); EOSINOPHILS # (AUTO) 0.1 (0.0-0.4); EOSINOPHILS % 1.1 % (0.0-6.0); HEMATOCRIT 33.2 % (34.2-44.1); HEMOGLOBIN 10.2 g/dL (12.0-16.0); LYMPHOCYTES # (AUTO) 0.7 (1.0-3.2); LYMPHOCYTES % 5.3 % (18.0-39.1); MEAN CORPUSCULAR HEMOGLOBIN 28.2 pg (28-32); MEAN CORPUSCULAR HGB CONC 30.7 g/dL (31-35); MEAN CORPUSCULAR VOLUME 91.7 fL (81-99); MONOCYTES # (AUTO) 0.4 (0.2-0.8); MONOCYTES % 3.2 % (4.4-11.3); NEUTROPHILS # (AUTO) 11.3 (2.1-6.9); NEUTROPHILS % 89.5 % (38.7-80.0); PLATELET COUNT 243 x10e3/uL (140-360); RED BLOOD COUNT 3.62 x10e6/uL (3.6-5.1); RED CELL DISTRIBUTION WIDTH 20.4 % (11.7-14.4)
[2020-11-04] MEDS: METOPROLOL TARTRATE 25 MG TAB PO SCH ×2 (05:35)
[2020-11-04] MEDS: INSULIN REGULAR, HUMAN 100 UNIT/1 ML 3ML VIAL SQ SCH ×3 (05:35→17:22)
[2020-11-04 05:36] LABS: ALBUMIN 1.6 g/dL (3.5-5.0); ALBUMIN/GLOBULIN RATIO 0.4 (0.8-2.0); CALCIUM 7.4 mg/dL (8.4-10.2); CREATININE, SERUM 0.95 mg/dL (0.57-1.11)
[2020-11-04] MEDS: DEXTROSE 50% SYRINGE 50 ML IV PRN (05:42)
[2020-11-04] MEDS: MEROPENEM 500MG/ NS 50ML 50 ML IV SCH ×2 (08:14→20:54)
[2020-11-04] MEDS: LACTULOSE SYRUP 20 GM/30 ML UDC PO SCH ×2 (08:14→16:09)
[2020-11-04] MEDS: PRAMIPEXOLE DIHYDROCHLORIDE 0.25 MG TAB PO SCH (08:14)
[2020-11-04] MEDS: FUROSEMIDE INJ 10 MG/ML 4 ML VIAL IV SCH (08:14)
[2020-11-04] MEDS: PANTOPRAZOLE SODIUM 40 MG SUSPDR.PKT PO SCH ×2 (08:15→16:09)
[2020-11-04] MEDS: AMANTADINE HCL 100 MG CAP PO SCH (08:15)
[2020-11-04] MEDS ORDERED: VECURONIUM BROMIDE FOR INJ 20 MG VIAL ONE ×2 (09:03→15:26)
[2020-11-04 09:06] LABS: ABG HCO3 27 mmol/L (22-26); ABG PCO2 37 mmHg (35-45); ABG PH 7.46 (7.35-7.45); ABG PO2 68 mmHg (80-105); ABG TCO2 28
[2020-11-04] MEDS ORDERED: KCL 20 MEQ PACKET/ ORAL SOLN NG ONE (09:30)
[2020-11-04] MEDS: LEVETIRACETAM 500MG/5ML VIAL 500 MG in SODIUM CHLORIDE 0.9% 100 ML 100 ML IV SCH ×2 (10:06→21:47)
[2020-11-04] MEDS ORDERED: LIDOCAINE HCL 1% LOCAL INJ 20 ML VIAL ONE (10:47)
[2020-11-04] MEDS ORDERED: BUPIVACAINE HCL 0.5% INJ 30 ML VIAL INJ ONE (10:47)
[2020-11-04] MEDS ORDERED: VECURONIUM BROMIDE FOR INJ 20 MG VIAL IV STA (15:16)
[2020-11-04] MEDS ORDERED: DEXTROSE 5% 1,000 ML IV ONE (17:30)
[2020-11-04] MEDS ORDERED: PROPOFOL IV EMULSION 10 MG/ML 20 ML VIAL ONE (17:36)
[2020-11-04] MEDS ORDERED: LIDOCAINE HCL 2% LOCAL INJ 5 ML SDV VIAL INJ ONE (17:36)
[2020-11-04] MEDS: INSULIN GLARGINE 100 UNITS/ML VIAL SQ SCH (20:55)
[2020-11-05] VITALS (17 sets, daily range): BP systolic 88–145; BP diastolic 41–69
[2020-11-05] MEDS: PROPOFOL IV EMULSION 10MG/ML 100 ML IV PRN ×4 (03:02→18:31)
[2020-11-05 04:56] LABS: BASOPHILS % 0.2 % (0.0-1.0); EOSINOPHILS # (AUTO) 0.1 (0.0-0.4); EOSINOPHILS % 0.7 % (0.0-6.0); HEMATOCRIT 32.6 % (34.2-44.1); LYMPHOCYTES # (AUTO) 0.6 (1.0-3.2); LYMPHOCYTES % 3.6 % (18.0-39.1); MEAN CORPUSCULAR HEMOGLOBIN 28.5 pg (28-32); MEAN CORPUSCULAR HGB CONC 30.7 g/dL (31-35); MEAN CORPUSCULAR VOLUME 92.9 fL (81-99); MONOCYTES # (AUTO) 0.5 (0.2-0.8); MONOCYTES % 3.5 % (4.4-11.3); NEUTROPHILS % 91.5 % (38.7-80.0); PLATELET COUNT 212 x10e3/uL (140-360); RED BLOOD COUNT 3.51 x10e6/uL (3.6-5.1); RED CELL DISTRIBUTION WIDTH 20.3 % (11.7-14.4)
[2020-11-05 05:22] LABS: ALBUMIN 1.5 g/dL (3.5-5.0); ALBUMIN/GLOBULIN RATIO 0.4 (0.8-2.0); ANION GAP 12.6 mmol/L (8-16); CALCIUM 7.2 mg/dL (8.4-10.2); CREATININE, SERUM 0.99 mg/dL (0.57-1.11); POTASSIUM 3.6 mmol/L (3.5-5.1)
[2020-11-05] MEDS: INSULIN REGULAR, HUMAN 100 UNIT/1 ML 3ML VIAL SQ SCH ×4 (05:52→17:10)
[2020-11-05] MEDS: FUROSEMIDE INJ 10 MG/ML 4 ML VIAL IV SCH (07:19)
[2020-11-05] MEDS: MEROPENEM 500MG/ NS 50ML 50 ML IV SCH ×2 (07:19→21:06)
[2020-11-05] MEDS: PANTOPRAZOLE SODIUM 40 MG SUSPDR.PKT PO SCH ×2 (07:19→16:21)
[2020-11-05] MEDS: LACTULOSE SYRUP 20 GM/30 ML UDC PO SCH ×2 (07:19→16:21)
[2020-11-05 08:07] LABS: ABG HCO3 25 mmol/L (22-26); ABG PCO2 47 mmHg (35-45); ABG PH 7.33 (7.35-7.45); ABG PO2 71 mmHg (80-105); ABG TCO2 26
[2020-11-05] MEDS: LEVETIRACETAM 500MG/5ML VIAL 500 MG in SODIUM CHLORIDE 0.9% 100 ML 100 ML IV SCH ×2 (10:09→22:09)
[2020-11-05] MEDS: MIDODRINE HCL 5 MG TABLET NG SCH (17:09)
[2020-11-05] MEDS: INSULIN GLARGINE 100 UNITS/ML VIAL SQ SCH (21:06)
[2020-11-06] VITALS (25 sets, daily range): BP systolic 86–144; BP diastolic 46–86
[2020-11-06] MEDS: INSULIN REGULAR, HUMAN 100 UNIT/1 ML 3ML VIAL SQ SCH ×4 (00:44→17:53)
[2020-11-06] MEDS: PROPOFOL IV EMULSION 10MG/ML 100 ML IV PRN ×6 (00:53→20:15)
[2020-11-06 04:51] LABS: BASOPHILS # (AUTO) 0.1 (0.0-0.1); BASOPHILS % 0.2 % (0.0-1.0); EOSINOPHILS % 0.2 % (0.0-6.0); HEMATOCRIT 33.1 % (34.2-44.1); LYMPHOCYTES # (AUTO) 0.6 (1.0-3.2); LYMPHOCYTES % 2.9 % (18.0-39.1); MEAN CORPUSCULAR HEMOGLOBIN 27.9 pg (28-32); MEAN CORPUSCULAR HGB CONC 30.2 g/dL (31-35); MEAN CORPUSCULAR VOLUME 92.5 fL (81-99); MONOCYTES # (AUTO) 0.5 (0.2-0.8); MONOCYTES % 2.3 % (4.4-11.3); NEUTROPHILS # (AUTO) 18.8 (2.1-6.9); NEUTROPHILS % 93.7 % (38.7-80.0); PLATELET COUNT 182 x10e3/uL (140-360); RED BLOOD COUNT 3.58 x10e6/uL (3.6-5.1); RED CELL DISTRIBUTION WIDTH 19.4 % (11.7-14.4)
[2020-11-06] MEDS: LOPERAMIDE HCL 2 MG CAP PO PRN (05:18)
[2020-11-06 05:21] LABS: ALANINE AMINOTRANSFERASE 33 IU/L (0-55); ALBUMIN 1.4 g/dL (3.5-5.0); ALBUMIN/GLOBULIN RATIO 0.3 (0.8-2.0); ALKALINE PHOSPHATASE 139 IU/L (40-150); ANION GAP 13.3 mmol/L (8-16); BLOOD UREA NITROGEN 51 mg/dL (7-26); BUN/CREATININE RATIO 61 (6-25); CALCIUM 7.3 mg/dL (8.4-10.2); CARBON DIOXIDE 24 mmol/L (22-29); CHLORIDE 108 mmol/L (98-107); CREATININE, SERUM 0.83 mg/dL (0.57-1.11); EST GLOMERULAR FILTRATION RATE > 60 ML/MIN (60-); GLUCOSE 186 mg/dL (74-118); POTASSIUM 3.3 mmol/L (3.5-5.1); SODIUM 142 mmol/L (136-145)
[2020-11-06] MEDS: MEROPENEM 500MG/ NS 50ML 50 ML IV SCH ×2 (08:06→21:24)
[2020-11-06] MEDS: FUROSEMIDE INJ 10 MG/ML 4 ML VIAL IV SCH (08:06)
[2020-11-06] MEDS: MIDODRINE HCL 5 MG TABLET NG SCH ×3 (08:06→15:01)
[2020-11-06] MEDS: PANTOPRAZOLE SODIUM 40 MG SUSPDR.PKT PO SCH (08:06)
[2020-11-06] MEDS: LEVETIRACETAM 500MG/5ML VIAL 500 MG in SODIUM CHLORIDE 0.9% 100 ML 100 ML IV SCH ×2 (08:58→22:30)
[2020-11-06 09:32] LABS: ABG PH 7.36 (7.35-7.45)
[2020-11-06 09:33] LABS: ABG HCO3 26 mmol/L (22-26); ABG PCO2 46 mmHg (35-45); ABG PO2 101 mmHg (80-105); ABG TCO2 27
[2020-11-06] MEDS ORDERED: POTASSIUM CHLORIDE 20MEQ/15ML UDC NG ONE (13:45)
[2020-11-06] MEDS ORDERED: KCL 20 MEQ PACKET/ ORAL SOLN NG ONE (14:00)
[2020-11-06] MEDS: PANTOPRAZOLE 40 MG 10ML VIAL IV SCH (17:11)
[2020-11-06] MEDS: INSULIN GLARGINE 100 UNITS/ML VIAL SQ SCH (21:35)
[2020-11-07] VITALS (26 sets, daily range): BP systolic 80–139; BP diastolic 45–73
[2020-11-07] MEDS: INSULIN REGULAR, HUMAN 100 UNIT/1 ML 3ML VIAL SQ SCH ×4 (00:30→17:37)
[2020-11-07] MEDS: PROPOFOL IV EMULSION 10MG/ML 100 ML IV PRN ×7 (02:15→21:00)
[2020-11-07 04:56] LABS: BASOPHILS # (AUTO) 0.1 (0.0-0.1); BASOPHILS % 0.3 % (0.0-1.0); EOSINOPHILS # (AUTO) 0.2 (0.0-0.4); EOSINOPHILS % 0.9 % (0.0-6.0); HEMATOCRIT 32.5 % (34.2-44.1); LYMPHOCYTES # (AUTO) 0.6 (1.0-3.2); LYMPHOCYTES % 3.6 % (18.0-39.1); MEAN CORPUSCULAR HEMOGLOBIN 28.4 pg (28-32); MEAN CORPUSCULAR HGB CONC 30.8 g/dL (31-35); MEAN CORPUSCULAR VOLUME 92.3 fL (81-99); MONOCYTES # (AUTO) 0.4 (0.2-0.8); MONOCYTES % 2.4 % (4.4-11.3); NEUTROPHILS # (AUTO) 15.8 (2.1-6.9); NEUTROPHILS % 92.1 % (38.7-80.0); PLATELET COUNT 182 x10e3/uL (140-360); RED BLOOD COUNT 3.52 x10e6/uL (3.6-5.1); RED CELL DISTRIBUTION WIDTH 19.1 % (11.7-14.4)
[2020-11-07 05:27] LABS: ALANINE AMINOTRANSFERASE 30 IU/L (0-55); ALBUMIN 1.3 g/dL (3.5-5.0); ALBUMIN/GLOBULIN RATIO 0.3 (0.8-2.0); ALKALINE PHOSPHATASE 191 IU/L (40-150); ANION GAP 12.2 mmol/L (8-16); BLOOD UREA NITROGEN 54 mg/dL (7-26); BUN/CREATININE RATIO 62 (6-25); CALCIUM 7.7 mg/dL (8.4-10.2); CARBON DIOXIDE 24 mmol/L (22-29); CHLORIDE 109 mmol/L (98-107); CREATININE, SERUM 0.87 mg/dL (0.57-1.11); EST GLOMERULAR FILTRATION RATE > 60 ML/MIN (60-); GLUCOSE 274 mg/dL (74-118); POTASSIUM 4.2 mmol/L (3.5-5.1); SODIUM 141 mmol/L (136-145)
[2020-11-07] MEDS: MEROPENEM 500MG/ NS 50ML 50 ML IV SCH ×2 (08:12→21:20)
[2020-11-07] MEDS: PANTOPRAZOLE 40 MG 10ML VIAL IV SCH ×2 (08:12→16:08)
[2020-11-07] MEDS: ARTIFICIAL TEARS (OPTH) 15 ML BTL OP SCH ×2 (08:12→16:08)
[2020-11-07] MEDS: MIDODRINE HCL 5 MG TABLET NG SCH ×3 (08:12→16:07)
[2020-11-07] MEDS: FUROSEMIDE INJ 10 MG/ML 4 ML VIAL IV SCH (08:12)
[2020-11-07] MEDS ORDERED: EYE LUBRICANT OPTH OINT 3.5GM TUBE OP SCH (09:00)
[2020-11-07] MEDS ORDERED: SODIUM CHLORIDE 0.9% 250ML 250 ML ONE (17:27)
[2020-11-07] MEDS ORDERED: LACTATED RINGER'S 1,000 ML ONE (19:12)
[2020-11-07] MEDS: INSULIN GLARGINE 100 UNITS/ML VIAL SQ SCH (22:00)
[2020-11-08] VITALS (25 sets, daily range): BP systolic 85–146; BP diastolic 39–66
[2020-11-08] MEDS: PROPOFOL IV EMULSION 10MG/ML 100 ML IV PRN ×8 (00:15→21:40)
[2020-11-08] MEDS: INSULIN REGULAR, HUMAN 100 UNIT/1 ML 3ML VIAL SQ SCH ×2 (00:40→06:32)
[2020-11-08] MEDS: ACETAMINOPHEN 325 MG/10 ML UDC NG PRN ×2 (04:59→23:33)
[2020-11-08 05:12] LABS: BASOPHILS # (AUTO) 0.1 (0.0-0.1); BASOPHILS % 0.3 % (0.0-1.0); EOSINOPHILS # (AUTO) 0.3 (0.0-0.4); EOSINOPHILS % 2.2 % (0.0-6.0); HEMATOCRIT 31.1 % (34.2-44.1); HEMOGLOBIN 9.5 g/dL (12.0-16.0); LYMPHOCYTES # (AUTO) 0.8 (1.0-3.2); LYMPHOCYTES % 5.2 % (18.0-39.1); MEAN CORPUSCULAR HEMOGLOBIN 28.2 pg (28-32); MEAN CORPUSCULAR HGB CONC 30.5 g/dL (31-35); MEAN CORPUSCULAR VOLUME 92.3 fL (81-99); MONOCYTES # (AUTO) 0.5 (0.2-0.8); MONOCYTES % 3.5 % (4.4-11.3); NEUTROPHILS # (AUTO) 13.3 (2.1-6.9); NEUTROPHILS % 88.1 % (38.7-80.0); PLATELET COUNT 182 x10e3/uL (140-360); RED BLOOD COUNT 3.37 x10e6/uL (3.6-5.1); RED CELL DISTRIBUTION WIDTH 19.2 % (11.7-14.4)
[2020-11-08 05:38] LABS: ALBUMIN 1.2 g/dL (3.5-5.0); ALBUMIN/GLOBULIN RATIO 0.2 (0.8-2.0); ANION GAP 14.2 mmol/L (8-16); CALCIUM 7.8 mg/dL (8.4-10.2); CREATININE, SERUM 0.99 mg/dL (0.57-1.11); POTASSIUM 4.2 mmol/L (3.5-5.1)
[2020-11-08] MEDS: MIDODRINE HCL 5 MG TABLET NG SCH ×4 (08:15→17:00)
[2020-11-08] MEDS: MEROPENEM 500MG/ NS 50ML 50 ML IV SCH ×2 (08:16→21:51)
[2020-11-08] MEDS: ARTIFICIAL TEARS (OPTH) 15 ML BTL OP SCH ×2 (08:16→16:04)
[2020-11-08] MEDS: PANTOPRAZOLE 40 MG 10ML VIAL IV SCH ×2 (08:16→16:04)
[2020-11-08] MEDS: FUROSEMIDE INJ 10 MG/ML 4 ML VIAL IV SCH (08:16)
[2020-11-08] MEDS: BALSAM PERU/CASTOR OIL 60 GM OINT...G. TP SCH (12:05)
[2020-11-08] MEDS ORDERED: DEXTROSE 50% SYRINGE 50 ML IV PRN (13:15)
[2020-11-08] MEDS: INSULIN LISPRO 100 UNIT/1 ML 3ML VIAL SQ SCH ×2 (13:38→17:50)
[2020-11-08] MEDS ORDERED: INSULIN LISPRO 100 UNIT/1 ML 3ML VIAL SQ SCH (16:30)
[2020-11-08 17:24] LABS: ABG HCO3 24 mmol/L (22-26); ABG PCO2 42 mmHg (35-45); ABG PH 7.36 (7.35-7.45); ABG PO2 107 mmHg (80-105); ABG TCO2 25
[2020-11-08] MEDS: INSULIN GLARGINE 100 UNITS/ML VIAL SQ SCH (21:15)
[2020-11-09] VITALS (26 sets, daily range): BP systolic 87–127; BP diastolic 45–60
[2020-11-09] MEDS: INSULIN LISPRO 100 UNIT/1 ML 3ML VIAL SQ SCH ×4 (00:04→17:54)
[2020-11-09] MEDS: PROPOFOL IV EMULSION 10MG/ML 100 ML IV PRN ×6 (01:16→20:30)
[2020-11-09 05:43] LABS: BASOPHILS # (AUTO) 0.1 (0.0-0.1); BASOPHILS % 0.6 % (0.0-1.0); EOSINOPHILS # (AUTO) 0.1 (0.0-0.4); EOSINOPHILS % 0.5 % (0.0-6.0); HEMATOCRIT 31.8 % (34.2-44.1); HEMOGLOBIN 9.6 g/dL (12.0-16.0); LYMPHOCYTES # (AUTO) 0.7 (1.0-3.2); LYMPHOCYTES % 3.2 % (18.0-39.1); MEAN CORPUSCULAR HEMOGLOBIN 28.5 pg (28-32); MEAN CORPUSCULAR HGB CONC 30.2 g/dL (31-35); MEAN CORPUSCULAR VOLUME 94.4 fL (81-99); MONOCYTES # (AUTO) 0.9 (0.2-0.8); MONOCYTES % 3.7 % (4.4-11.3); NEUTROPHILS # (AUTO) 20.6 (2.1-6.9); NEUTROPHILS % 90.7 % (38.7-80.0); PLATELET COUNT 194 x10e3/uL (140-360); RED BLOOD COUNT 3.37 x10e6/uL (3.6-5.1); RED CELL DISTRIBUTION WIDTH 18.8 % (11.7-14.4)
[2020-11-09 05:55] LABS: ALBUMIN 1.1 g/dL (3.5-5.0); ALBUMIN/GLOBULIN RATIO 0.2 (0.8-2.0); ANION GAP 15.1 mmol/L (8-16); CREATININE, SERUM 1.09 mg/dL (0.57-1.11); POTASSIUM 4.1 mmol/L (3.5-5.1)
[2020-11-09] MEDS: PANTOPRAZOLE 40 MG 10ML VIAL IV SCH ×2 (08:46→16:42)
[2020-11-09] MEDS: ARTIFICIAL TEARS (OPTH) 15 ML BTL OP SCH ×2 (08:46→16:43)
[2020-11-09] MEDS: FUROSEMIDE INJ 10 MG/ML 4 ML VIAL IV SCH (08:46)
[2020-11-09] MEDS: MEROPENEM 500MG/ NS 50ML 50 ML IV SCH ×2 (08:46→21:06)
[2020-11-09] MEDS: BALSAM PERU/CASTOR OIL 60 GM OINT...G. TP SCH (08:47)
[2020-11-09] MEDS: MIDODRINE HCL 5 MG TABLET NG SCH ×3 (08:49→15:55)
[2020-11-09] MEDS: ACETAMINOPHEN 325 MG/10 ML UDC NG PRN (15:55)
[2020-11-09] MEDS ORDERED: FUROSEMIDE INJ 10 MG/ML 4 ML VIAL IV ONE (17:15)
[2020-11-09] MEDS: INSULIN GLARGINE 100 UNITS/ML VIAL SQ SCH (21:06)
[2020-11-09] MEDS: METHYLPREDNISOLONE SOD SUCC 125 MG/2ML VIAL IV SCH (21:43)
[2020-11-10] VITALS (23 sets, daily range): BP systolic 94–143; BP diastolic 37–56
[2020-11-10] MEDS: INSULIN LISPRO 100 UNIT/1 ML 3ML VIAL SQ SCH ×4 (00:32→17:57)
[2020-11-10 05:32] LABS: BASOPHILS # (AUTO) 0.1 (0.0-0.1); BASOPHILS % 0.3 % (0.0-1.0); HEMATOCRIT 30.9 % (34.2-44.1); HEMOGLOBIN 9.2 g/dL (12.0-16.0); LYMPHOCYTES # (AUTO) 0.6 (1.0-3.2); LYMPHOCYTES % 2.8 % (18.0-39.1); MEAN CORPUSCULAR HEMOGLOBIN 28.4 pg (28-32); MEAN CORPUSCULAR HGB CONC 29.8 g/dL (31-35); MEAN CORPUSCULAR VOLUME 95.4 fL (81-99); MONOCYTES # (AUTO) 0.5 (0.2-0.8); MONOCYTES % 1.9 % (4.4-11.3); NEUTROPHILS # (AUTO) 21.2 (2.1-6.9); NEUTROPHILS % 91.3 % (38.7-80.0); PLATELET COUNT 215 x10e3/uL (140-360); RED BLOOD COUNT 3.24 x10e6/uL (3.6-5.1); RED CELL DISTRIBUTION WIDTH 18.7 % (11.7-14.4)
[2020-11-10] MEDS: METHYLPREDNISOLONE SOD SUCC 125 MG/2ML VIAL IV SCH (06:00)
[2020-11-10 06:06] LABS: ALBUMIN 1.1 g/dL (3.5-5.0); ALBUMIN/GLOBULIN RATIO 0.2 (0.8-2.0); ANION GAP 19.6 mmol/L (8-16); CALCIUM 8.2 mg/dL (8.4-10.2); CREATININE, SERUM 1.62 mg/dL (0.57-1.11)
[2020-11-10 06:27] LABS: FERRITIN 953.21 ng/mL (4.63-204.00)
[2020-11-10 06:46] LABS: POTASSIUM 5.6 mmol/L (3.5-5.1)
[2020-11-10] MEDS: FUROSEMIDE INJ 10 MG/ML 4 ML VIAL IV SCH ×3 (09:13→21:14)
[2020-11-10] MEDS: MIDODRINE HCL 5 MG TABLET NG SCH ×3 (09:13→17:11)
[2020-11-10] MEDS: MEROPENEM 500MG/ NS 50ML 50 ML IV SCH ×2 (09:14→21:14)
[2020-11-10] MEDS: PANTOPRAZOLE 40 MG 10ML VIAL IV SCH ×2 (09:14→17:11)
[2020-11-10 09:26] LABS: ABG HCO3 23 mmol/L (22-26); ABG PCO2 59 mmHg (35-45); ABG PH 7.21 (7.35-7.45); ABG PO2 67 mmHg (80-105); ABG TCO2 25
[2020-11-10] MEDS: PROPOFOL IV EMULSION 10MG/ML 100 ML IV PRN ×3 (10:07→21:10)
[2020-11-10] MEDS: BALSAM PERU/CASTOR OIL 60 GM OINT...G. TP SCH (10:17)
[2020-11-10] MEDS: ALBUMIN 25% 25GM 100ML 0.25 GM/ML BTL IV SCH ×3 (10:18→23:18)
[2020-11-10] MEDS: ARTIFICIAL TEARS (OPTH) 15 ML BTL OP SCH ×2 (10:18→17:00)
[2020-11-10 14:11] LABS: ABG HCO3 21 mmol/L (22-26); ABG PCO2 52 mmHg (35-45); ABG PH 7.22 (7.35-7.45); ABG PO2 70 mmHg (80-105); ABG TCO2 23
[2020-11-10] MEDS: ENOXAPARIN 30 MG/0.3 ML SYR SC SCH (17:10)
[2020-11-10] MEDS: INSULIN GLARGINE 100 UNITS/ML VIAL SQ SCH (21:15)
[2020-11-11] VITALS (25 sets, daily range): BP systolic 91–121; BP diastolic 34–54
[2020-11-11] MEDS: LOPERAMIDE HCL 2 MG CAP PO PRN (01:45)
[2020-11-11] MEDS ORDERED: LOPERAMIDE HCL 2 MG CAP ONE (01:50)
[2020-11-11 04:58] LABS: BASOPHILS % 0.3 % (0.0-1.0); HEMATOCRIT 25.1 % (34.2-44.1); HEMOGLOBIN 7.7 g/dL (12.0-16.0); LYMPHOCYTES # (AUTO) 1.1 (1.0-3.2); LYMPHOCYTES % 6.8 % (18.0-39.1); MEAN CORPUSCULAR HEMOGLOBIN 28.8 pg (28-32); MEAN CORPUSCULAR HGB CONC 30.7 g/dL (31-35); MONOCYTES # (AUTO) 1.2 (0.2-0.8); MONOCYTES % 7.4 % (4.4-11.3); NEUTROPHILS # (AUTO) 12.5 (2.1-6.9); NEUTROPHILS % 80.1 % (38.7-80.0); PLATELET COUNT 204 x10e3/uL (140-360); RED BLOOD COUNT 2.67 x10e6/uL (3.6-5.1); RED CELL DISTRIBUTION WIDTH 18.2 % (11.7-14.4)
[2020-11-11 04:59] LABS: ALBUMIN 2.4 g/dL (3.5-5.0); ALBUMIN/GLOBULIN RATIO 0.6 (0.8-2.0); ANION GAP 22.3 mmol/L (8-16); CALCIUM 8.2 mg/dL (8.4-10.2); CREATININE, SERUM 2.01 mg/dL (0.57-1.11); POTASSIUM 4.3 mmol/L (3.5-5.1)
[2020-11-11] MEDS: PROPOFOL IV EMULSION 10MG/ML 100 ML IV PRN ×5 (05:14→20:44)
[2020-11-11] MEDS: INSULIN LISPRO 100 UNIT/1 ML 3ML VIAL SQ SCH ×4 (06:21→17:39)
[2020-11-11 07:02] LABS: BAND NEUTROPHILS % (MANUAL) 2 %; LYMPHOCYTES % (MANUAL) 4 % (19-48); MONOCYTES % (MANUAL) 6 % (3.4-9.0); NEUTROPHILS % (MANUAL) 88 % (40-74)
[2020-11-11 07:03] LABS: PLATELET ESTIMATE ADEQUATE; PLATELET MORPHOLOGY COMMENT NORMAL; RBC MORPHOLOGY COMMENT NORMAL
[2020-11-11] MEDS: ARTIFICIAL TEARS (OPTH) 15 ML BTL OP SCH ×2 (08:09→16:11)
[2020-11-11] MEDS: MEROPENEM 500MG/ NS 50ML 50 ML IV SCH ×2 (08:09→20:44)
[2020-11-11] MEDS: PANTOPRAZOLE 40 MG 10ML VIAL IV SCH ×2 (08:09→16:11)
[2020-11-11] MEDS: MIDODRINE HCL 5 MG TABLET NG SCH ×3 (08:09→16:11)
[2020-11-11] MEDS: FUROSEMIDE INJ 10 MG/ML 4 ML VIAL IV SCH (08:09)
[2020-11-11] MEDS: BALSAM PERU/CASTOR OIL 60 GM OINT...G. TP SCH (08:09)
[2020-11-11 09:56] LABS: ABG HCO3 20 mmol/L (22-26); ABG PH 7.18 (7.35-7.45); ABG PO2 121 mmHg (80-105); ABG TCO2 22
[2020-11-11 09:59] LABS: ABG PCO2 54 mmHg (35-45)
[2020-11-11] MEDS ORDERED: SODIUM BICARBONATE 8.4% 50 ML in SODIUM CHLORIDE 0.45% 1,000 ML IV ONE (10:30)
[2020-11-11] MEDS ORDERED: SODIUM BICARBONATE 8.4% SYRING 0 ML ONE (11:04)
[2020-11-11] MEDS: ENOXAPARIN 30 MG/0.3 ML SYR SC SCH (16:11)
[2020-11-11 17:54] LABS: ABG HCO3 20 mmol/L (22-26); ABG PCO2 51 mmHg (35-45); ABG PO2 90 mmHg (80-105); ABG TCO2 21
[2020-11-11] MEDS: INSULIN GLARGINE 100 UNITS/ML VIAL SQ SCH (21:11)
[2020-11-12] VITALS (34 sets, daily range): BP systolic 85–126; BP diastolic 35–55
[2020-11-12] MEDS: INSULIN LISPRO 100 UNIT/1 ML 3ML VIAL SQ SCH ×4 (00:40→17:26)
[2020-11-12] MEDS: PROPOFOL IV EMULSION 10MG/ML 100 ML IV PRN ×5 (00:40→14:12)
[2020-11-12] MEDS: LACTATED RINGER'S 1,000 ML INJ SCH ×2 (01:18→13:54)
[2020-11-12 05:20] LABS: BASOPHILS # (AUTO) 0.1 (0.0-0.1); BASOPHILS % 0.4 % (0.0-1.0); EOSINOPHILS # (AUTO) 0.3 (0.0-0.4); EOSINOPHILS % 1.8 % (0.0-6.0); HEMATOCRIT 27.2 % (34.2-44.1); HEMOGLOBIN 8.6 g/dL (12.0-16.0); LYMPHOCYTES # (AUTO) 0.8 (1.0-3.2); LYMPHOCYTES % 4.5 % (18.0-39.1); MEAN CORPUSCULAR HEMOGLOBIN 28.6 pg (28-32); MEAN CORPUSCULAR HGB CONC 31.6 g/dL (31-35); MEAN CORPUSCULAR VOLUME 90.4 fL (81-99); MONOCYTES # (AUTO) 0.9 (0.2-0.8); MONOCYTES % 4.8 % (4.4-11.3); PLATELET COUNT 221 x10e3/uL (140-360); RED BLOOD COUNT 3.01 x10e6/uL (3.6-5.1)
[2020-11-12 06:08] LABS: ALBUMIN 1.9 g/dL (3.5-5.0); ALBUMIN/GLOBULIN RATIO 0.5 (0.8-2.0); ANION GAP 22.8 mmol/L (8-16); CALCIUM 7.4 mg/dL (8.4-10.2); CREATININE, SERUM 2.23 mg/dL (0.57-1.11); POTASSIUM 4.8 mmol/L (3.5-5.1)
[2020-11-12] MEDS: MIDODRINE HCL 5 MG TABLET NG SCH ×3 (07:39→16:55)
[2020-11-12] MEDS: BALSAM PERU/CASTOR OIL 60 GM OINT...G. TP SCH (08:12)
[2020-11-12] MEDS: PANTOPRAZOLE 40 MG 10ML VIAL IV SCH ×2 (08:12→16:30)
[2020-11-12] MEDS: ARTIFICIAL TEARS (OPTH) 15 ML BTL OP SCH ×2 (08:12→16:55)
[2020-11-12 09:49] LABS: ABG HCO3 18 mmol/L (22-26); ABG PCO2 40 mmHg (35-45); ABG PH 7.25 (7.35-7.45); ABG PO2 115 mmHg (80-105); ABG TCO2 19
[2020-11-12] MEDS: ENOXAPARIN 30 MG/0.3 ML SYR SC SCH (16:55)
[2020-11-12] MEDS: INSULIN GLARGINE 100 UNITS/ML VIAL SQ SCH (20:56)
[2020-11-12] MEDS ORDERED: NOREPINEPHRINE 8 MG/D5W 250 ML 250 ML ONE (21:25)
[2020-11-12] MEDS: NOREPINEPHRINE INJ 4MG/4ML 8 MG in DEXTROSE 5% 250ML 250 ML IV PRN (21:25)
[2020-11-13] VITALS (22 sets, daily range): BP systolic 105–128; BP diastolic 37–49
[2020-11-13] MEDS: INSULIN LISPRO 100 UNIT/1 ML 3ML VIAL SQ SCH ×4 (00:15→17:32)
[2020-11-13] MEDS: PROPOFOL IV EMULSION 10MG/ML 100 ML IV PRN (01:00)
[2020-11-13] MEDS: LACTATED RINGER'S 1,000 ML INJ SCH (01:43)
[2020-11-13 05:15] LABS: BASOPHILS % 0.1 % (0.0-1.0); HEMATOCRIT 27.2 % (34.2-44.1); HEMOGLOBIN 8.6 g/dL (12.0-16.0); LYMPHOCYTES # (AUTO) 1.1 (1.0-3.2); LYMPHOCYTES % 2.7 % (18.0-39.1); MEAN CORPUSCULAR HEMOGLOBIN 28.8 pg (28-32); MEAN CORPUSCULAR HGB CONC 31.6 g/dL (31-35); MONOCYTES # (AUTO) 1.4 (0.2-0.8); MONOCYTES % 3.2 % (4.4-11.3); NEUTROPHILS # (AUTO) 37.7 (2.1-6.9); NEUTROPHILS % 87.7 % (38.7-80.0); PLATELET COUNT 280 x10e3/uL (140-360); RED BLOOD COUNT 2.99 x10e6/uL (3.6-5.1); RED CELL DISTRIBUTION WIDTH 17.4 % (11.7-14.4)
[2020-11-13] MEDS: ACETAMINOPHEN 325 MG/10 ML UDC NG PRN ×2 (05:27→10:21)
[2020-11-13 06:23] LABS: ALBUMIN 1.8 g/dL (3.5-5.0); ALBUMIN/GLOBULIN RATIO 0.4 (0.8-2.0); ANION GAP 27.5 mmol/L (8-16); CALCIUM 7.6 mg/dL (8.4-10.2); CREATININE, SERUM 2.64 mg/dL (0.57-1.11)
[2020-11-13 06:34] LABS: POTASSIUM 6.5 mmol/L (3.5-5.1)
[2020-11-13] MEDS ORDERED: SODIUM BICARBONATE 8.4% INJ 50 ML SYR IV ONE (07:15)
[2020-11-13] MEDS ORDERED: SOD POLYSTYRENE SULFONATE SUSP 15 GM/60 ML BTL PO ONE (07:15)
[2020-11-13] MEDS: NOREPINEPHRINE INJ 4MG/4ML 8 MG in DEXTROSE 5% 250ML 250 ML IV PRN (08:00)
[2020-11-13] MEDS: MIDODRINE HCL 5 MG TABLET NG SCH ×3 (08:07→16:11)
[2020-11-13] MEDS: PANTOPRAZOLE 40 MG 10ML VIAL IV SCH ×2 (08:11→16:15)
[2020-11-13] MEDS: ARTIFICIAL TEARS (OPTH) 15 ML BTL OP SCH ×2 (08:19→16:15)
[2020-11-13] MEDS: BALSAM PERU/CASTOR OIL 60 GM OINT...G. TP SCH (08:19)
[2020-11-13] MEDS ORDERED: VANCOMYCIN 1GM/NS 250 ML 250 ML IV ONE (08:45)
[2020-11-13] MEDS: MEROPENEM 500MG/ NS 50ML 50 ML IV SCH ×2 (09:20→21:00)
[2020-11-13] MEDS ORDERED: CALCIUM CHLORIDE 10% 1.36 MEQ/ML 10ML SYR IV STA (15:35)
[2020-11-13] MEDS ORDERED: SODIUM BICARBONATE 8.4% SYRING 50 ML in SODIUM CHLORIDE 0.45% 1,000 ML IV SCH (15:45)
[2020-11-13] MEDS ORDERED: DEXTROSE 50% SYRINGE 50 ML IV ONE (15:45)
[2020-11-13] MEDS ORDERED: INSULIN REGULAR, HUMAN 100 UNIT/1 ML 3ML VIAL IV ONE (15:45)
[2020-11-13] MEDS: ENOXAPARIN 30 MG/0.3 ML SYR SC SCH (16:15)
[2020-11-13] MEDS: SODIUM BICARBONATE 8.4% SYRING 50 ML in SODIUM CHLORIDE 0.45% 1,000 ML IV SCH (16:47)
[2020-11-13] MEDS: INSULIN GLARGINE 100 UNITS/ML VIAL SQ SCH (22:26)
[2020-11-13] MEDS: NOREPINEPHRINE 8 MG/D5W 250 ML 250 ML IV PRN (22:55)
[2020-11-14] VITALS (21 sets, daily range): BP systolic 84–141; BP diastolic 37–52
[2020-11-14] MEDS: INSULIN LISPRO 100 UNIT/1 ML 3ML VIAL SQ SCH ×5 (00:17→23:41)
[2020-11-14 05:12] LABS: ALBUMIN 1.7 g/dL (3.5-5.0); ALBUMIN/GLOBULIN RATIO 0.4 (0.8-2.0); ANION GAP 27.4 mmol/L (8-16); CALCIUM 7.9 mg/dL (8.4-10.2); CREATININE, SERUM 3.15 mg/dL (0.57-1.11)
[2020-11-14 05:18] LABS: POTASSIUM 6.4 mmol/L (3.5-5.1)
[2020-11-14] MEDS: SODIUM BICARBONATE 8.4% SYRING 50 ML in SODIUM CHLORIDE 0.45% 1,000 ML IV SCH ×2 (05:49→19:40)
[2020-11-14] MEDS ORDERED: SODIUM BICARBONATE 8.4% INJ 50 ML SYR IV STA (06:45)
[2020-11-14] MEDS: NOREPINEPHRINE 8 MG/D5W 250 ML 250 ML IV PRN ×2 (07:48→16:00)
[2020-11-14] MEDS: PROPOFOL IV EMULSION 10MG/ML 100 ML IV PRN ×2 (07:50→19:35)
[2020-11-14] MEDS: PANTOPRAZOLE 40 MG 10ML VIAL IV SCH ×2 (10:39→19:02)
[2020-11-14] MEDS: MIDODRINE HCL 5 MG TABLET NG SCH ×3 (10:39→15:18)
[2020-11-14] MEDS: MEROPENEM 500MG/ NS 50ML 50 ML IV SCH ×2 (10:39→20:50)
[2020-11-14] MEDS: ARTIFICIAL TEARS (OPTH) 15 ML BTL OP SCH ×2 (10:39→18:31)
[2020-11-14] MEDS: BALSAM PERU/CASTOR OIL 60 GM OINT...G. TP SCH (15:17)
[2020-11-14] MEDS: ENOXAPARIN 30 MG/0.3 ML SYR SC SCH (19:02)
[2020-11-14] MEDS: LOPERAMIDE HCL 2 MG CAP PO PRN (19:20)
[2020-11-14] MEDS: INSULIN GLARGINE 100 UNITS/ML VIAL SQ SCH (20:59)
[2020-11-15] VITALS (17 sets, daily range): BP systolic 106–130; BP diastolic 35–50
[2020-11-15] MEDS: NOREPINEPHRINE 8 MG/D5W 250 ML 250 ML IV PRN (04:07)
[2020-11-15] MEDS: PROPOFOL IV EMULSION 10MG/ML 100 ML IV PRN (05:26)
[2020-11-15] MEDS: INSULIN LISPRO 100 UNIT/1 ML 3ML VIAL SQ SCH (05:48)
[2020-11-15] MEDS: BALSAM PERU/CASTOR OIL 60 GM OINT...G. TP SCH (08:05)
[2020-11-15] MEDS: MEROPENEM 500MG/ NS 50ML 50 ML IV SCH (08:05)
[2020-11-15] MEDS: ARTIFICIAL TEARS (OPTH) 15 ML BTL OP SCH (08:05)
[2020-11-15] MEDS: MIDODRINE HCL 5 MG TABLET NG SCH ×2 (08:05→11:16)
[2020-11-15] MEDS: PANTOPRAZOLE 40 MG 10ML VIAL IV SCH (08:05)
[2020-11-15] MEDS: SODIUM BICARBONATE 8.4% SYRING 50 ML in SODIUM CHLORIDE 0.45% 1,000 ML IV SCH (10:30)
[2020-11-15] MEDS ORDERED: MORPHINE SULFATE INJ 2 MG/ML SYR IV PRN (11:15)
[2020-11-15] MEDS ORDERED: MORPHINE SULFATE INJ 4 MG/ML INJ 1ML IV ONE (12:00)
[2020-11-15] MEDS ORDERED: LORAZEPAM INJ 2 MG/ML VIAL IV ONE ×2 (12:00)
== END 2020-11-15 15:21 | disposition expired | DRG 4 ==
LOC: FSED 17:06 → ERHOLD 19:58 → IMCU 23:08 → ICU 10-11 11:19
PROVIDERS: ADMIT Internal Medicine; ATTEND Internal Medicine
PROC: 3E0333Z Introduction of Anti-inflammatory into Peripheral Vein, Percutaneous Approach (ICD-10-PCS; 2020-10-08)
PROC: XW043E5 Introduction of Remdesivir Anti-infective into Central Vein, Percutaneous Approach, New Technology Group 5 (ICD-10-PCS; 2020-10-09)
PROC: 02HV33Z Insertion of Infusion Device into Superior Vena Cava, Percutaneous Approach (ICD-10-PCS; 2020-10-13)
PROC: B548ZZA Ultrasonography of Superior Vena Cava, Guidance (ICD-10-PCS; 2020-10-13)
PROC: 3E0436Z Introduction of Nutritional Substance into Central Vein, Percutaneous Approach (ICD-10-PCS; 2020-10-13)
PROC: 5A1955Z Respiratory Ventilation, Greater than 96 Consecutive Hours (ICD-10-PCS; principal; 2020-10-19)
PROC: 0BH18EZ Insertion of Endotracheal Airway into Trachea, Via Natural or Artificial Opening Endoscopic (ICD-10-PCS; 2020-10-19)
PROC: 3E043XZ Introduction of Vasopressor into Central Vein, Percutaneous Approach (ICD-10-PCS; 2020-10-19)
PROC: 0W9900Z Drainage of Right Pleural Cavity with Drainage Device, Open Approach (ICD-10-PCS; 2020-10-20)
PROC: 03HY32Z Insertion of Monitoring Device into Upper Artery, Percutaneous Approach (ICD-10-PCS; 2020-10-20)
PROC: 4A133B1 Monitoring of Arterial Pressure, Peripheral, Percutaneous Approach (ICD-10-PCS; 2020-10-20)
PROC: 4A133J1 Monitoring of Arterial Pulse, Peripheral, Percutaneous Approach (ICD-10-PCS; 2020-10-20)
PROC: 5A1D70Z Performance of Urinary Filtration, Intermittent, Less than 6 Hours Per Day (ICD-10-PCS; 2020-10-21)
PROC: 0W9900Z Drainage of Right Pleural Cavity with Drainage Device, Open Approach (ICD-10-PCS; 2020-10-21)
PROC: 05HM33Z Insertion of Infusion Device into Right Internal Jugular Vein, Percutaneous Approach (ICD-10-PCS; 2020-10-21)
PROC: B543ZZA Ultrasonography of Right Jugular Veins, Guidance (ICD-10-PCS; 2020-10-21)
PROC: 5A1D70Z Performance of Urinary Filtration, Intermittent, Less than 6 Hours Per Day (ICD-10-PCS; 2020-10-22)
PROC: 03HY32Z Insertion of Monitoring Device into Upper Artery, Percutaneous Approach (ICD-10-PCS; 2020-10-22)
PROC: 4A133B1 Monitoring of Arterial Pressure, Peripheral, Percutaneous Approach (ICD-10-PCS; 2020-10-22)
PROC: 4A133J1 Monitoring of Arterial Pulse, Peripheral, Percutaneous Approach (ICD-10-PCS; 2020-10-22)
PROC: 5A1D70Z Performance of Urinary Filtration, Intermittent, Less than 6 Hours Per Day (ICD-10-PCS; 2020-10-24)
PROC: 5A1D70Z Performance of Urinary Filtration, Intermittent, Less than 6 Hours Per Day (ICD-10-PCS; 2020-10-26)
PROC: 0B21XEZ Change Endotracheal Airway in Trachea, External Approach (ICD-10-PCS; 2020-10-28)
PROC: 0W9900Z Drainage of Right Pleural Cavity with Drainage Device, Open Approach (ICD-10-PCS; 2020-10-28)
PROC: 5A1D70Z Performance of Urinary Filtration, Intermittent, Less than 6 Hours Per Day (ICD-10-PCS; 2020-10-29)
PROC: 30233N1 Transfusion of Nonautologous Red Blood Cells into Peripheral Vein, Percutaneous Approach (ICD-10-PCS; 2020-10-30)
PROC: 0DJ08ZZ Inspection of Upper Intestinal Tract, Via Natural or Artificial Opening Endoscopic (ICD-10-PCS; 2020-11-02)
PROC: 30233R1 Transfusion of Nonautologous Platelets into Peripheral Vein, Percutaneous Approach (ICD-10-PCS; 2020-11-02)
PROC: 30233N1 Transfusion of Nonautologous Red Blood Cells into Peripheral Vein, Percutaneous Approach (ICD-10-PCS; 2020-11-02)
PROC: 0B110F4 Bypass Trachea to Cutaneous with Tracheostomy Device, Open Approach (ICD-10-PCS; 2020-11-04)
DX: A41.89 Other specified sepsis (principal); J12.82 Pneumonia due to coronavirus disease 2019; J96.01 Acute respiratory failure with hypoxia; U07.1 COVID-19; G93.41 Metabolic encephalopathy; E43 Unspecified severe protein-calorie malnutrition; J93.0 Spontaneous tension pneumothorax; J15.9 Unspecified bacterial pneumonia; K72.00 Acute and subacute hepatic failure without coma; R65.21 Severe sepsis with septic shock; G92 Toxic encephalopathy; E44.0 Moderate protein-calorie malnutrition; N17.9 Acute kidney failure, unspecified; R57.9 Shock, unspecified; E87.2 Acidosis; K22.10 Ulcer of esophagus without bleeding; E87.0 Hyperosmolality and hypernatremia; K92.2 Gastrointestinal hemorrhage, unspecified; D62 Acute posthemorrhagic anemia; E87.4 Mixed disorder of acid-base balance; M06.9 Rheumatoid arthritis, unspecified; L89.151 Pressure ulcer of sacral region, stage 1; K29.70 Gastritis, unspecified, without bleeding; K20.90 Esophagitis, unspecified without bleeding; E11.65 Type 2 diabetes mellitus with hyperglycemia; Z79.84 Long term (current) use of oral hypoglycemic drugs; M48.061 Spinal stenosis, lumbar region without neurogenic claudication; F41.9 Anxiety disorder, unspecified; E87.6 Hypokalemia; Z82.49 Family history of ischemic heart disease and other diseases of the circulatory system; Z84.89 Family history of other specified conditions; I48.0 Paroxysmal atrial fibrillation; E83.51 Hypocalcemia; K75.89 Other specified inflammatory liver diseases; R56.9 Unspecified convulsions; R62.7 Adult failure to thrive; Z66 Do not resuscitate; Z68.27 Body mass index [BMI] 27.0-27.9, adult; N18.30 Chronic kidney disease, stage 3 unspecified; R19.7 Diarrhea, unspecified
CPT/HCPCS: 31500; 36415; 36569; 36600; 43235; 70450; 70551; 71045; 71260; 74018; 80048; 80053; 80061; 80076; 80202; 81003; 82140; 82550; 82553; 82607; 82728; 82805; 82948; 83605; 83630; 83735; 83880; 84100; 84146; 84443; 84478; 84484; 85014; 85018; 85025; 85379; 85384; 85610; 85730; 86704; 86705; 86706; 86850; 86900; 86920; 87040; 87045; 87071; 87177; 87205; 87340; 93005; 93306; 93971; 94002; 94003; 95812; 96372; 96374; 97139; 99251; 99285; C1752; J0456; J0696; J1100; J1160; J1630; J1644; J1650; J1815; J1817; J1940; J2001; J2060; J2150; J2185; J2250; J2270; J2543; J2930; J3370; J3411; J3480; J7030; J7050; J7060; J7070; J7121; J7799; P9016; P9034; P9047; Q9967; U0002